=== PATIENT | male | born 1960 | race Caucasian/White ===

== ENCOUNTER → 2019-01-22 | Outpatient (CLI) | payer OTHER, MEDICARE, SELFPAY | PROVIDERS: PCP Family Medicine; Visit Provider Internal Medicine Critical Care Medicine | DX: Z12.2 Encounter for screening for malignant neoplasm of respiratory organs (principal); Z87.891 Personal history of nicotine dependence | CPT/HCPCS: G0297; 36415; 71250; 80053; 80061; 81001; 84153; 84443; 85025 ==

== ENCOUNTER → 2019-04-07 | Outpatient (CLI) | payer OTHER, MEDICARE, SELFPAY | PROVIDERS: PCP Internal Medicine; Visit Provider Surgery Plastic and Reconstructive Surgery | DX: C44.01 Basal cell carcinoma of skin of lip (principal) | CPT/HCPCS: 88305; 88331 ==

== ENCOUNTER 2019-12-28 08:11 | Outpatient (CLI) | payer MEDICARE, SELFPAY ==
[2019-12-28 09:05] LABS: Alanine Aminotransferase 17 U/L (4-50); Alkaline Phosphatase 88 U/L (38-126); Aspartate Amino Transferase 20 U/L (17-59); Bilirubin,Total 0.1 mg/dL (0.2-1.3); Blood Urea Nitrogen 22 mg/dL (9-20); Calcium 8.5 mg/dL (8.4-10.2); Carbon Dioxide 23 mmol/L (22-30); Chloride 103 mmol/L (98-107); Cholesterol 152 mg/dL (0-200); Estimated Glomerular Filt Rate > 60; Glucose 112 mg/dL (75-110); HDL Direct 36 mg/dL; Potassium 4.1 mmol/L (3.4-5.0); Sodium 136 mmol/L (137-145); Triglycerides 100 mg/dL (<150)
[2019-12-28 09:16] LABS: LDL Cholesterol Direct 98 mg/dL
== END 2019-12-28 08:12 | disposition home or self-care (01) ==
LOC: ANHLAB 08:15
PROVIDERS: PCP Internal Medicine; Visit Provider Internal Medicine Endocrinology, Diabetes & Metabolism
DX: E78.5 Hyperlipidemia, unspecified (principal); E11.9 Type 2 diabetes mellitus without complications; E04.1 Nontoxic single thyroid nodule
CPT/HCPCS: 36415; 80053; 80061; 84439; 84443

== ENCOUNTER 2020-01-27 13:41 | Outpatient (CLI) | payer MEDICARE, SELFPAY ==
--- NOTE | ~2020-01-27 | CT_ITS ---
EXAMINATION:CT lung screening DATE: 01/27/2020 14:05 INDICATION: Personal history of nicotine dependence. Smoker who quit 13 years ago with 30 pack year h istory. TECHNIQUE: Computed tomography (CT) of the chest was performed without intravenous contrast. Automate d exposure control and iterative reconstruction technique were employed. The dose-length product (DLP ) was 534.98 mGy-cm. COMPARISON: Chest CT 01/22/2019, thyroid ultrasound 03/26/2015 FINDINGS: Again seen are 8 mm and 3 mm nodules in right lower lobe. A calcified left lung nodule and calcified left hilar lymph nodes are consistent with old granulomatous disease. Again seen are innume rable 1-2 mm nodules in the lower lobes, left worse than right. No pleural effusion. The heart size i s normal. No pericardial effusion. There is bilateral gynecomastia. There is a 1.6 cm nodule in left thyroid lobe, stable from 03/26/2015, likely benign. Calcifications in the spleen are consistent with old granulomatous disease. There is mild thoracic spondylosis. IMPRESSION: 1. Lung-RADS category 2: Benign appearance or behavior. Continue annual screening with noncontrast lo w-dose chest CT in 12 months. Reviewed, dictated and finalized at location A. IMPRESSION: 1. Lung-RADS category 2: Benign appearance or behavior. Continue annual screeni ng with noncontrast low-dose chest CT in 12 months.
== END 2020-01-27 13:42 | disposition home or self-care (01) ==
PROVIDERS: PCP Internal Medicine; Visit Provider Nurse Practitioner Family
DX: Z12.2 Encounter for screening for malignant neoplasm of respiratory organs (principal); Z87.891 Personal history of nicotine dependence
CPT/HCPCS: G0297

== ENCOUNTER 2020-04-08 10:34 | Outpatient (CLI) | payer MEDICARE, SELFPAY ==
[2020-04-08 11:16] LABS: Alanine Aminotransferase 22 U/L (4-50); Alkaline Phosphatase 79 U/L (38-126); Anion Gap 7 mmol/L (8-16); Aspartate Amino Transferase 22 U/L (17-59); Bilirubin,Total 0.4 mg/dL (0.2-1.3); Blood Urea Nitrogen 21 mg/dL (9-20); Calcium 9.2 mg/dL (8.4-10.2); Carbon Dioxide 28 mmol/L (22-30); Chloride 101 mmol/L (98-107); Cholesterol 152 mg/dL (0-200); Estimated Glomerular Filt Rate > 60; Glucose 134 mg/dL (75-110); HDL Direct 32 mg/dL; Potassium 4.2 mmol/L (3.4-5.0); Sodium 136 mmol/L (137-145); Triglycerides 115 mg/dL (<150)
[2020-04-08 11:41] LABS: LDL Cholesterol Direct 109 mg/dL
[2020-04-08 11:59] LABS: Prostate Specific Antigen 0.3 ng/mL (< OR = 4.0)
== END 2020-04-08 10:35 | disposition home or self-care (01) ==
LOC: ANHLAB 10:36
PROVIDERS: PCP Internal Medicine; Visit Provider Internal Medicine
DX: E11.42 Type 2 diabetes mellitus with diabetic polyneuropathy (principal); E88.81 Metabolic syndrome and other insulin resistance; E78.5 Hyperlipidemia, unspecified; Z12.5 Encounter for screening for malignant neoplasm of prostate
CPT/HCPCS: 36415; 80053; 80061; 84153; G0103

== ENCOUNTER 2020-10-15 13:25 | Emergency (ER) | payer MEDICARE, SELFPAY ==
--- NOTE | ~2020-10-15 | XR_ITS ---
EXAMINATION: XR chest 2V EXAM DATE: 10/15/2020 14:19 INDICATION: Fever, dizziness, diminished breath sounds. TECHNIQUE: Frontal and lateral projections of the chest obtained and reviewed. Comparison is made to prior examination from 04/03/2018. Correlation was made with HRCT 01/27/2020. FINDINGS: Chronic left lower lobe granuloma and smaller punctate reticular nodular opacities likely p ostinfectious and not significantly changed compared to 2018. No confluent consolidation, pneumothora x or pleural effusion suspected. Cardiomediastinal silhouette is normal. There are no osseous abnorma lities identified. IMPRESSION: 1. No acute cardiopulmonary findings or interval change. 2. Postinfectious residua. Reviewed, dictated and finalized at location A.
[2020-10-15 13:45] VITALS: BP 140/88; PULSE 102; RESP 26; TEMP 37.9; O2SAT 96
[2020-10-15 13:57] LABS: Glucose Point of Care 139 (65-105)
--- NOTE | 2020-10-15 13:57 | ED.GENADULT ---
HPI - General Adult General Chief complaint: Upper Respiratory Infection Stated complaint: headache,weakness Time Seen by Provider: 10/15/20 13:57 Source: patient Mode of arrival: ambulatory Limitations: no limitations History of Present Illness HPI narrative: 60-year-old male presents to the [facility] with complaints of a fever, generalized fatigue that started at 0 230 this morning. Patient reports that he had seen his diabetes doctor and foot doctor Friday or of last week and was prescribed Bactrim however he did not start taking it until yesterday. Complains of a frontal headache, sinus pressure, fever. COVID-19 05/2020 Related Data Home Medications Medication Instructions Recorded Confirmed aspirin 81 mg tablet,delayed 81 mg PO DAILY 06/24/19 10/15/20 release cinnamon bark 500 mg capsule 500 mg PO DAILY 07/12/19 10/15/20 lancets #50 each 07/12/19 10/12/20 Allergies Allergy/AdvReac Type Severity Reaction Status Date / Time No Known Allergies Allergy Verified 10/15/20 13:59 Review of Systems Review of Systems: Narrative: CONSTITUTIONAL: Reports fever without chills, or sweats. EYES: Denies visual changes, redness, or discharge. ENT: Reports rhinorrhea, congestion without sore throat, or otalgia. CARDIOVASCULAR: Denies chest pain, palpitations, or edema. RESPIRATORY: Reports cough without dyspnea. GASTROINTESTINAL: Denies abdominal pain, nausea, vomiting, or diarrhea. MUSCULOSKELETAL: Denies back pain, joint pain, or myalgia. NEUROLOGIC: Reports frontal headache without numbness, or weakness. PSYCHIATRIC: Denies anxiety or depression. All other systems reviewed are negative, except as documented in HPI. [facility] Past Medical History Medical History (Updated 10/15/20 @ 14:57 by Zoey Murry) Basal cell carcinoma (BCC) of lower lip Essential (primary) hypertension Family history of melanoma Former smoker Morbid obesity Personal history of tobacco use Pure hypercholesterolemia Type 2 diabetes mellitus with diabetic neuropathy, unspecified Unspecified sleep apnea Family History Family History Sibling Family history of kidney disease Family history of diabetes mellitus in first degree relative Family history of coronary artery disease Diabetes mellitus Mother Family history of Alzheimer's disease Family history of malignant melanoma Diabetes mellitus, Onset Age: 84 Family history of cardiovascular disease, Onset Age: 84 Family history of dementia, Onset Age: 84 Father Family history of malignant melanoma Family history of lung cancer, Onset Age: 65 Other Depression Family history of chronic obstructive pulmonary disease Family history of congestive heart failure Family history of malignant neoplasm Family history of obesity Hypertension Social History Social History Smoking status: Former smoker Smoking end date: 07/07/06 Alcohol intake: never 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 There is no relevant family history pertinent to the patient complaint. Exam Narrative: Exam Narrative: GENERAL: This is a well-nourished, well-developed patient, in no apparent distress. Morbidly obese HEAD: normocephalic, atraumatic. EYES: PERRL. Sclera clear/white. Vision is grossly intact. EARS: External ears normal, auditory canals clear and without drainage, TMs normal without perforation. Hearing grossly intact. NOSE: External nose normal with clear nasal discharge, nares with redness and injected, clear rhinorrhea. pressure Pansinus THROAT: Mucous membranes moist, posterior nasal drainage NECK: Neck supple, non-tender without lymphadenopathy, masses or thyromegaly. CARDIOVASCULAR: Regular rate
--- NOTE | 2020-10-15 14:41 | PC.NURSE ---
1425 TYLENOL 1000 MG GIVEN PO FOR FEVER. ALEKSEY SÁNCHEZ RN.
[2020-10-15 15:02] VITALS: BP 124/70; PULSE 101; RESP 26; TEMP 38.1; O2SAT 94
[2020-10-15 15:15] VITALS: BP 130/82; PULSE 88; RESP 24; TEMP 37.8; O2SAT 94
== END 2020-10-15 15:15 | disposition home or self-care (01) ==
PROVIDERS: Emergency Provider Nurse Practitioner; PCP Internal Medicine
DX: J01.40 Acute pansinusitis, unspecified (principal); R53.1 Weakness; Z87.891 Personal history of nicotine dependence; I10 Essential (primary) hypertension; E78.00 Pure hypercholesterolemia, unspecified; E11.42 Type 2 diabetes mellitus with diabetic polyneuropathy; G47.30 Sleep apnea, unspecified; Z85.828 Personal history of other malignant neoplasm of skin; E66.01 Morbid (severe) obesity due to excess calories; Z68.43 Body mass index [BMI] 50.0-59.9, adult
CPT/HCPCS: 71046; 82948; 99213; G0463

== ENCOUNTER 2020-10-19 16:27 | Outpatient (CLI) | payer MEDICARE, SELFPAY ==
--- NOTE | ~2020-10-19 | US_ITS ---
EXAMINATION: US thyroid DATE: 10/19/2020 16:51 INDICATION: Nontoxic single thyroid nodule. TECHNIQUE: Multiple ultrasound images of the thyroid were obtained. COMPARISON: Ultrasound 05/11/2019, 04/03/15 FINDINGS: The right thyroid lobe measures 4.6 x 1.9 x 1.5 cm. The left thyroid lobe measures 4.4 x 2.1 x 2.6 c m. In the left thyroid lobe, there is a 2.5 cm solid, isoechoic, bnnst-dmmw-qzoe nodule with ill-def ined margin without echogenic foci (TI-RADS TR3). IMPRESSION: 1. Left thyroid nodule, stable from 04/03/2015, likely benign. Reviewed, dictated and finalized at location A.
== END 2020-10-19 16:28 | disposition home or self-care (01) ==
PROVIDERS: PCP Internal Medicine; Visit Provider Internal Medicine Endocrinology, Diabetes & Metabolism
DX: E04.1 Nontoxic single thyroid nodule (principal)
CPT/HCPCS: 76536

== ENCOUNTER 2020-10-23 13:08 | Outpatient (CLI) | payer MEDICARE, SELFPAY ==
--- NOTE | ~2020-10-23 | US_ITS ---
EXAMINATION: US FNA w image guidance DATE: 10/23/2020 14:13 INDICATION: 2.4 similar left thyroid nodule TECHNIQUE: A time-out was performed to verify the patient's name, date of , and procedure to be performed . The procedure and its benefits and risks were discussed with the patient. Risks specifically discus sed included bleeding and infection. The patient understood the risks and agreed to proceed. The neck was prepped and draped in the usual sterile manner. 3 mL 1% lidocaine was used for local anesthesia . 6 passes were made with a 25G needle into the lesion. Appropriate needle location was documented with continuous sonographic guidance. The specimens were passed to the optometric technologist in the room. A sterile bandage was applied. There were no immediate complications. FINDINGS: Grayscale ultrasound images demonstrate biopsy needles advanced into the 2.6 similar solid hyperechoi c left thyroid nodule of concern. IMPRESSION: 1. Successful ultrasound-guided fine needle aspiration of . Reviewed, dictated and finalized at location A.
== END 2020-10-23 13:09 | disposition home or self-care (01) ==
PROVIDERS: PCP Internal Medicine; Visit Provider Internal Medicine Endocrinology, Diabetes & Metabolism
DX: E04.1 Nontoxic single thyroid nodule (principal)
CPT/HCPCS: 10005; 88173; 88305; 88307

== ENCOUNTER 2021-01-26 09:52 | Outpatient (CLI) | payer MEDICARE, SELFPAY ==
--- NOTE | ~2021-01-26 | CT_ITS ---
EXAMINATION: CT lung screening DATE: 01/26/2021 10:11 INDICATION: Personal history of tobacco dependence, prior smoker with 78 pack year history TECHNIQUE: Computed tomography (CT) of the chest was performed without intravenous contrast. The dose -length product (DLP) was 558.05 mGy-cm. 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 COMPARISON: 01/27/2020 FINDINGS: There is a stable 8 mm nodule of the right lower lobe on image 78. A stable 3 mm nodule is present in the right lower lobe on image 82. There is a stable 9 mm groundglass nodule of the right l ower lobe on image 90. There are unchanged innumerable nodules of the lower lobes, left greater than right, measuring 1 to 2 mm. A calcified nodule of the left lower lobe is consistent with old granulom atous disease. No new or suspicious pulmonary nodule is identified. The lungs are free of acute opaci ties. There is no pleural effusion or pneumothorax. Bilateral gynecomastia is noted. No pathologicall y enlarged thoracic lymph nodes are identified. The heart size is normal. There is calcified coronary artery atherosclerosis. There is mild thoracic spondylosis. IMPRESSION: 1. Lung-RADS category 2: Benign appearance or behavior. Continue annual screening with noncontrast lo w-dose chest CT in 12 months. Reviewed, dictated and finalized at location B. IMPRESSION: 1. Lung-RADS category 2: Benign appearance or behavior. Continue annual screeni ng with noncontrast low-dose chest CT in 12 months.
== END 2021-01-26 09:53 | disposition home or self-care (01) ==
PROVIDERS: PCP Internal Medicine; Visit Provider Nurse Practitioner Family
DX: Z12.2 Encounter for screening for malignant neoplasm of respiratory organs (principal); Z87.891 Personal history of nicotine dependence
CPT/HCPCS: 71271

== ENCOUNTER 2021-02-10 08:46 | Outpatient (CLI) | payer MEDICARE, SELFPAY ==
[2021-02-10 09:49] LABS: Alanine Aminotransferase 22 U/L (4-50); Albumin Level 3.7 g/dL (3.5-5.1); Alkaline Phosphatase 82 U/L (38-126); Anion Gap 5 mmol/L (8-16); Aspartate Amino Transferase 21 U/L (17-59); Bilirubin,Total 0.4 mg/dL (0.2-1.3); Blood Urea Nitrogen 21 mg/dL (9-20); Calcium 8.5 mg/dL (8.4-10.2); Carbon Dioxide 23 mmol/L (22-30); Chloride 108 mmol/L (98-107); Cholesterol 152 mg/dL (0-200); Estimated Glomerular Filt Rate > 60; Glucose 123 mg/dL (65-110); HDL Direct 33 mg/dL; Potassium 3.6 mmol/L (3.4-5.0); Sodium 136 mmol/L (137-145); Triglycerides 99 mg/dL (<150)
[2021-02-10 10:01] LABS: LDL Cholesterol Direct 95 mg/dL
[2021-02-10 10:59] LABS: Prostate Specific Antigen 0.3 ng/mL (< OR = 4.0)
== END 2021-02-10 08:47 | disposition home or self-care (01) ==
LOC: ANHLAB 08:49
PROVIDERS: PCP Internal Medicine; Visit Provider Nurse Practitioner
DX: Z12.5 Encounter for screening for malignant neoplasm of prostate (principal); E11.42 Type 2 diabetes mellitus with diabetic polyneuropathy; E04.1 Nontoxic single thyroid nodule; E78.2 Mixed hyperlipidemia
CPT/HCPCS: 36415; 80053; 80061; 83036; 84153; 84443; G0103

== ENCOUNTER 2021-02-12 14:26 | Outpatient (CLI) | payer MEDICARE, SELFPAY ==
[2021-02-12 17:35] LABS: Creatinine Urine 122.9 mg/dL
[2021-02-12 17:40] LABS: MALB Creatinine Ratio 6.1 mg/g (0-30); Microalbumin Urine Random 7.5 mg/L (0-16.7)
== END 2021-02-12 14:27 | disposition home or self-care (01) ==
LOC: ANHLAB 14:28
PROVIDERS: PCP Internal Medicine; Visit Provider Nurse Practitioner
DX: E11.42 Type 2 diabetes mellitus with diabetic polyneuropathy (principal)
CPT/HCPCS: 82043

== ENCOUNTER 2021-07-03 10:53 | Outpatient (CLI) | payer MEDICARE, SELFPAY ==
[2021-07-03 11:43] LABS: Alanine Aminotransferase 18 U/L (4-50); Aspartate Amino Transferase 34 U/L (17-59)
== END 2021-07-03 10:54 | disposition home or self-care (01) ==
PROVIDERS: PCP Internal Medicine; Visit Provider Podiatrist Foot & Ankle Surgery
DX: B35.1 Tinea unguium (principal)
CPT/HCPCS: 36415; 84450; 84460

== ENCOUNTER 2021-09-29 10:16 | Outpatient (CLI) | payer MEDICARE, SELFPAY ==
[2021-09-29 11:40] LABS: Alanine Aminotransferase 23 U/L (4-50); Albumin Level 4.2 g/dL (3.5-5.1); Alkaline Phosphatase 69 U/L (38-126); Anion Gap 7 mmol/L (8-16); Aspartate Amino Transferase 34 U/L (17-59); Bilirubin,Total 0.9 mg/dL (0.2-1.3); Blood Urea Nitrogen 23 mg/dL (9-20); Calcium 8.1 mg/dL (8.4-10.2); Carbon Dioxide 29 mmol/L (22-30); Chloride 101 mmol/L (98-107); Cholesterol 157 mg/dL (0-200); Estimated Glomerular Filt Rate > 60; Glucose 126 mg/dL (65-110); HDL Direct 34 mg/dL; Sodium 137 mmol/L (137-145); Triglycerides 79 mg/dL (<150)
[2021-09-29 11:42] LABS: LDL Cholesterol Direct 98 mg/dL
[2021-09-29 13:51] LABS: Hemoglobin A1C 5.9 % (<5.7)
== END 2021-09-29 10:17 | disposition home or self-care (01) ==
PROVIDERS: PCP Internal Medicine; Visit Provider Internal Medicine
DX: E11.42 Type 2 diabetes mellitus with diabetic polyneuropathy (principal); E78.5 Hyperlipidemia, unspecified; I10 Essential (primary) hypertension
CPT/HCPCS: 36415; 80053; 80061; 83036

== ENCOUNTER 2021-11-10 08:41 | Outpatient (CLI) | payer MEDICARE, SELFPAY ==
[2021-11-10 09:25] LABS: Alanine Aminotransferase 17 U/L (4-50); Aspartate Amino Transferase 21 U/L (17-59)
== END 2021-11-10 08:42 | disposition home or self-care (01) ==
PROVIDERS: PCP Internal Medicine; Visit Provider Podiatrist Foot & Ankle Surgery
DX: B35.1 Tinea unguium (principal)
CPT/HCPCS: 36415; 84450; 84460

== ENCOUNTER → 2021-11-24 00:02 | Outpatient (CLI) | payer MEDICARE, SELFPAY ==
[2021-11-24 14:46] LABS: SARS-CoV-2 RNA PCR Positive
== END ==
PROVIDERS: PCP Internal Medicine; Visit Provider Internal Medicine
DX: U07.1 COVID-19 (principal)
CPT/HCPCS: C9803; U0003; U0005

== ENCOUNTER 2022-02-14 08:18 | Outpatient (CLI) | payer MEDICARE, SELFPAY ==
[2022-02-14 09:28] LABS: Albumin Level 4.1 g/dL (3.5-5.1); Anion Gap 10 mmol/L (8-16); Blood Urea Nitrogen 25 mg/dL (9-20); Calcium 8.1 mg/dL (8.4-10.2); Carbon Dioxide 26 mmol/L (22-30); Chloride 103 mmol/L (98-107); Estimated Glomerular Filt Rate > 60; Glucose 129 mg/dL (65-110); Phosphorus 2.8 mg/dL (2.5-4.5); Sodium 139 mmol/L (137-145)
[2022-02-14 09:35] LABS: Alanine Aminotransferase 16 U/L (6-50); Alkaline Phosphatase 91 U/L (38-126); Anion Gap 8 mmol/L (8-16); Aspartate Amino Transferase 25 U/L (17-59); Bilirubin,Total 0.5 mg/dL (0.2-1.3); Blood Urea Nitrogen 27 mg/dL (9-20); Calcium 8.5 mg/dL (8.4-10.2); Carbon Dioxide 27 mmol/L (22-30); Chloride 101 mmol/L (98-107); Cholesterol 214 mg/dL (0-200); Estimated Glomerular Filt Rate > 60; Glucose 127 mg/dL (65-110); HDL Direct 35 mg/dL; Potassium 4.2 mmol/L (3.4-5.0); Sodium 136 mmol/L (137-145); Triglycerides 119 mg/dL (<150)
[2022-02-14 09:40] LABS: Parathyroid Intact 48.1 pg/mL (7.5-53.5)
[2022-02-14 09:42] LABS: LDL Cholesterol Direct 158 mg/dL
[2022-02-14 09:58] LABS: Prostate Specific Antigen 0.3 ng/mL (< OR = 4.0)
== END 2022-02-14 08:19 | disposition home or self-care (01) ==
PROVIDERS: Nurse Practitioner; Nurse Practitioner Family; PCP Internal Medicine; Visit Provider Internal Medicine
DX: R79.89 Other specified abnormal findings of blood chemistry (principal); E11.9 Type 2 diabetes mellitus without complications; Z12.5 Encounter for screening for malignant neoplasm of prostate; E78.5 Hyperlipidemia, unspecified
CPT/HCPCS: 36415; 80053; 80061; 80069; 83036; 83970; 84153; G0103

== ENCOUNTER 2022-10-19 09:43 | Outpatient (CLI) | payer MEDICARE, SELFPAY ==
[2022-10-19 10:18] LABS: Alanine Aminotransferase 22 U/L (6-50); Albumin Level 4.2 g/dL (3.5-5.1); Alkaline Phosphatase 78 U/L (38-126); Anion Gap 7 mmol/L (8-16); Aspartate Amino Transferase 23 U/L (17-59); Blood Urea Nitrogen 20 mg/dL (9-20); Calcium 8.4 mg/dL (8.4-10.2); Carbon Dioxide 29 mmol/L (22-30); Chloride 102 mmol/L (98-107); Cholesterol 145 mg/dL (0-200); Estimated Glomerular Filt Rate > 60; Glucose 112 mg/dL (65-110); HDL Direct 39 mg/dL; Potassium 3.5 mmol/L (3.4-5.0); Sodium 138 mmol/L (137-145); Triglycerides 98 mg/dL (<150)
[2022-10-19 10:29] LABS: LDL Cholesterol Direct 85 mg/dL
[2022-10-19 11:04] LABS: MALB Creatinine Ratio 6.8 mg/g (0-30)
[2022-10-19 12:05] LABS: Hemoglobin A1C 5.9 % (<5.7)
== END 2022-10-19 09:44 | disposition home or self-care (01) ==
PROVIDERS: PCP Internal Medicine; Visit Provider Internal Medicine
DX: E11.65 Type 2 diabetes mellitus with hyperglycemia (principal); I10 Essential (primary) hypertension; E11.42 Type 2 diabetes mellitus with diabetic polyneuropathy; E78.5 Hyperlipidemia, unspecified
CPT/HCPCS: 36415; 80053; 80061; 82043; 83036

== ENCOUNTER 2022-11-07 16:03 | Emergency (ER) | payer MEDICARE, SELFPAY ==
--- NOTE | 2022-11-07 16:18 | ED.URI ---
HPI - URI/Sore Throat General Chief Complaint: Upper Respiratory Infection Stated Complaint: Sore Throat/Cough Source: patient and RN notes reviewed History of Present Illness HPI Narrative: 62-year-old male presents to urgent care complaining of sneezing, a cough, slight sore throat, and runny nose. Patient states symptoms going on since Friday. Patient states his cough might be worsening. Denies any fevers, chills, congestion abdominal pain, vomiting, diarrhea, chest pain, or shortness of breath. Patient has been taking Benadryl at home with moderate relief. Related Data Home Medications Medication Instructions Recorded Confirmed aspirin 81 mg tablet,delayed 81 mg PO DAILY 06/24/19 11/07/22 release cinnamon bark 500 mg capsule 500 mg PO DAILY 07/12/19 11/07/22 (Cinnamon) lancets (Accu-Chek Multiclix #50 ea 07/12/19 10/31/22 Lancet) semaglutide 2 mg/dose (8 mg/3 mL) 2 mg subcut WEEKLY 03/18/22 11/07/22 subcutaneous pen injector (Ozempic) Allergies Allergy/AdvReac Type Severity Reaction Status Date / Time No Known Allergies Allergy Verified 10/31/22 10:17 Review of Systems Review of Systems: Pertinent positives and pertinent negatives per HPI. [facility] Past Medical History Medical History Basal cell carcinoma (BCC) of lower lip Eczema Essential (primary) hypertension Former smoker Long-term insulin use Metabolic syndrome Mixed hyperlipidemia Morbid obesity Neuropathy Obstructive sleep apnea (adult) (pediatric) Pure hypercholesterolemia Thyroid nodule Type 2 diabetes mellitus with diabetic neuropathy, unspecified Viral gastroenteritis Surgical History Surgical History [place] teeth extracted Family History Family History Sibling Family history of kidney disease Family history of diabetes mellitus in first degree relative Family history of coronary artery disease Diabetes mellitus Mother Family history of Alzheimer's disease Family history of malignant melanoma Diabetes mellitus, Onset Age: 84 Family history of cardiovascular disease, Onset Age: 84 Family history of dementia, Onset Age: 84 Father Family history of malignant melanoma Family history of lung cancer, Onset Age: 65 Other Depression Family history of chronic obstructive pulmonary disease Family history of congestive heart failure Family history of malignant neoplasm Family history of obesity Hypertension Social History Social History Smoking packs per day: 2.5 Smoking cigarettes per day: 50.0 Years smoked: 27 Smoking pack-years: 67.50 Smoking status: Former smoker Tobacco type: cigarettes Second hand tobacco smoke exposure: Yes Smoking end date: 07/07/06 Alcohol intake: former Alcohol use details: quit 2006 Substance use: never Substance use type: does not use Lack of Transportation: No Lack of Food: Never True Current Housing: I Have Housing Concerned About Future Housing: No Difficulty Paying Gas/Electric Bills: No Difficulty Paying for Meds: No Currently Unemployed: No Education: High School Diploma/GED Difficulty w/ Childcare or Family Care: No Living arrangements: with family Occupation/Education: occupation 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 There is no relevant family history pertinent to the patient complaint. Exam Narrative: GENERAL: This is a well-nourished, well-developed patient, in no apparent distress. HEAD: normocephalic, atraumatic. EYES: Sclera clear/white. Vision is grossly intact. EARS: Exter
[2022-11-07 16:20] VITALS: BP 122/65; PULSE 70; RESP 20; TEMP 36.8; O2SAT 100
== END 2022-11-07 16:35 | disposition home or self-care (01) ==
PROVIDERS: Emergency Provider Nurse Practitioner Family; PCP Family Medicine
DX: J40 Bronchitis, not specified as acute or chronic (principal); J06.9 Acute upper respiratory infection, unspecified; Z87.891 Personal history of nicotine dependence; I10 Essential (primary) hypertension; E78.2 Mixed hyperlipidemia; E78.00 Pure hypercholesterolemia, unspecified; E11.40 Type 2 diabetes mellitus with diabetic neuropathy, unspecified; E66.01 Morbid (severe) obesity due to excess calories; Z85.828 Personal history of other malignant neoplasm of skin; Z79.82 Long term (current) use of aspirin
CPT/HCPCS: 99213; G0463

== ENCOUNTER 2022-11-17 10:11 | Emergency (ER) | payer MEDICARE, SELFPAY ==
[2022-11-17 10:18] VITALS: BP 144/79; PULSE 78; RESP 20; TEMP 36.4; O2SAT 99
[2022-11-17 10:35] VITALS: BP 144/79; PULSE 78; RESP 20; TEMP 36.4; O2SAT 99
--- NOTE | 2022-11-17 11:31 | ED.GENADULT ---
HPI - General Adult General Chief complaint: Upper Respiratory Infection Stated complaint: throat and drainage Source: patient Mode of arrival: ambulatory Limitations: no limitations History of Present Illness HPI narrative: PATIENT PRESENTS FOR EVALUATION OF SORE THROAT AND SINUS SYMPTOMS. HE WOKE FROM SLEEP THIS MORNING WITH A SORE THROAT. HE STATES HE HAS EXPERIENCED SINUS CONGESTION AND YELLOW DRAINAGE FOR MORE THAN A WEEK. HE INDICATES HE COMPLETED AZITHROMYCIN FOR A SINUS INFECTION ABOUT A WEEK AGO. HE IS A FORMER SMOKER. 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 NO ADDITIONAL COMPLAINTS OR CONCERNS. Related Data Home Medications Medication Instructions Recorded Confirmed aspirin 81 mg tablet,delayed 81 mg PO DAILY 06/24/19 11/17/22 release cinnamon bark 500 mg capsule 500 mg PO DAILY 07/12/19 11/17/22 (Cinnamon) lancets (Accu-Chek Multiclix #50 ea 07/12/19 11/17/22 Lancet) semaglutide 2 mg/dose (8 mg/3 mL) 2 mg subcut WEEKLY 03/18/22 11/17/22 subcutaneous pen injector (Ozempic) Allergies Allergy/AdvReac Type Severity Reaction Status Date / Time No Known Allergies Allergy Verified 11/17/22 10:30 Review of Systems Review of Systems: CONSTITUTIONAL: DENIES FEVER, CHILLS, OR SWEATS. EYES: DENIES VISUAL CHANGES, REDNESS, OR DISCHARGE. ENT: REPORTS SINUS CONGESTION, YELLOW NASAL DRAINAGE AND SORE THROAT CARDIOVASCULAR: DENIES CHEST PAIN, PALPITATIONS, OR EDEMA. RESPIRATORY: REPORTS COUGH. DENIES SOB. GASTROINTESTINAL: DENIES ABDOMINAL PAIN, NAUSEA, VOMITING, OR DIARRHEA. GENITOURINARY: DENIES DYSURIA OR HEMATURIA. SKIN: DENIES RASH OR ITCHING. MUSCULOSKELETAL: DENIES BACK PAIN, JOINT PAIN, OR MYALGIA. NEUROLOGIC: DENIES HEADACHE, NUMBNESS, DIZZINESS, OR WEAKNESS. PSYCHIATRIC: DENIES ANXIETY OR DEPRESSION. [facility] Past Medical History Medical History Basal cell carcinoma (BCC) of lower lip Eczema Essential (primary) hypertension Former smoker Long-term insulin use Metabolic syndrome Mixed hyperlipidemia Morbid obesity Neuropathy Obstructive sleep apnea (adult) (pediatric) Pure hypercholesterolemia Thyroid nodule Type 2 diabetes mellitus with diabetic neuropathy, unspecified Viral gastroenteritis Surgical History Surgical History [place] teeth extracted Family History Family History Sibling Family history of kidney disease Family history of diabetes mellitus in first degree relative Family history of coronary artery disease Diabetes mellitus Mother Family history of Alzheimer's disease Family history of malignant melanoma Diabetes mellitus, Onset Age: 84 Family history of cardiovascular disease, Onset Age: 84 Family history of dementia, Onset Age: 84 Father Family history of malignant melanoma Family history of lung cancer, Onset Age: 65 Other Depression Family history of chronic obstructive pulmonary disease Family history of congestive heart failure Family history of malignant neoplasm Family history of obesity Hypertension Social History Social History Smoking packs per day: 2.5 Smoking cigarettes per day: 50.0 Years smoked: 27 Smoking pack-years: 67.50 Smoking status: Former smoker Tobacco type: cigarettes Second hand tobacco smoke exposure: Yes Smoking end date: 07/07/06 Alcohol intake: former Alcohol use details: quit 2006 Substance use: never Substance use type: does not use Lack of Transportation: No Lack of Food: Never True Current Housing: I Have Housing Concerned About Future Housing: No Difficulty Paying Gas/Electric Bills: No Difficulty Paying for Meds: No Currentl
== END 2022-11-17 11:30 | disposition home or self-care (01) ==
PROVIDERS: Emergency Provider Nurse Practitioner; PCP Family Medicine
DX: J01.10 Acute frontal sinusitis, unspecified (principal); J02.9 Acute pharyngitis, unspecified; Z87.891 Personal history of nicotine dependence; I10 Essential (primary) hypertension; E88.81 Metabolic syndrome and other insulin resistance; E78.2 Mixed hyperlipidemia; E66.01 Morbid (severe) obesity due to excess calories; Z68.43 Body mass index [BMI] 50.0-59.9, adult; E78.00 Pure hypercholesterolemia, unspecified; E11.42 Type 2 diabetes mellitus with diabetic polyneuropathy; Z85.828 Personal history of other malignant neoplasm of skin; Z79.82 Long term (current) use of aspirin
CPT/HCPCS: 87081; 87880; 99213; G0463

== ENCOUNTER 2023-01-04 07:47 | Outpatient (CLI) | payer MEDICARE, SELFPAY ==
[2023-01-04 08:51] LABS: Alanine Aminotransferase 21 U/L (6-50); Aspartate Amino Transferase 29 U/L (17-59)
== END 2023-01-04 07:48 | disposition home or self-care (01) ==
LOC: ANHLAB 07:49
PROVIDERS: PCP Family Medicine; Visit Provider Podiatrist Foot & Ankle Surgery
DX: B35.1 Tinea unguium (principal)
CPT/HCPCS: 36415; 84450; 84460

== ENCOUNTER 2023-01-10 09:23 | Outpatient (CLI) | payer MEDICARE, SELFPAY ==
--- NOTE | ~2023-01-10 | CT_ITS ---
CT Scan of the Chest without Contrast: Clinical Indication: Pulmonary nodule Technique: Contiguous sections were acquired throughout the chest without intravenous contrast. Dose reduction technique was used on this scan by utilizing automated exposure control and iterative recon struction technique. The dose-length product (DLP) was 630.13 mGy-cm. COMPARISON: 01/26/2021 Findings: There is no evidence of any significant mediastinal, hilar or axillary lymphadenopathy. The mediastin al soft tissues appear normal. There is no evidence of pleural or pericardial effusion. Extensive tree-in-bud nodules in the left lower lobe are unchanged. Large calcified left lower lobe g ranulomas unchanged. Stable 8 mm right lower lobe pulmonary nodule (axial image 99). Minimal tree-in- bud-like opacities in the right lower lobe are unchanged. Images through the upper abdomen reveal no abnormalities. Impression: Stable bilateral lower lobe tree-in-bud opacities, much more extensive in the left lower lobe than th e right. Stable 8 mm noncalcified right lower lobe pulmonary nodule. Reviewed, dictated and finalized at location M. Impression: Stable bilateral lower lobe tree-in-bud opacities, much more extensive in the l eft lower lobe than the right. Stable 8 mm noncalcified right lower lobe pulmonary nodule.
== END 2023-01-10 09:24 | disposition home or self-care (01) ==
PROVIDERS: PCP Family Medicine; Visit Provider Nurse Practitioner Family
DX: R91.8 Other nonspecific abnormal finding of lung field (principal)
CPT/HCPCS: 71250

== ENCOUNTER 2023-05-31 12:04 | Emergency (ER) | payer MEDICARE, SELFPAY ==
[2023-05-31 12:09] VITALS: BP 139/77; PULSE 72; RESP 20; TEMP 36.7; O2SAT 97
--- NOTE | 2023-05-31 12:28 | ED.EXTPRO ---
HPI - Extremity Problem General Chief complaint: Extremity Problem,Nontraumatic Stated complaint: Right Shoulder Pain Source: patient, family and RN notes reviewed History of Present Illness HPI Narrative: 62 yo M presents to urgent care with complaints of right posterior shoulder pain that radiates down to his elbow x 8 days. Pt denies any injury. States the pain worsens when he looks up to the jeronimo. Pt has some pain relief when he put his right hand on the top of his head. Denies any chest pain, SOB, vomiting, posterior neck pain, fevers, chills, numbness, or tingling. Pt has taken Tylenol and applied heat without relief. Related Data Home Medications Medication Instructions Recorded Confirmed aspirin 81 mg tablet,delayed 81 mg PO DAILY 06/24/19 05/31/23 release cinnamon bark 500 mg capsule 500 mg PO DAILY 07/12/19 05/31/23 (Cinnamon) lancets (Accu-Chek Multiclix #50 ea 07/12/19 05/08/23 Lancet) terbinafine HCl 250 mg tablet 250 mg PO DAILY 01/20/23 05/31/23 gabapentin 100 mg capsule 200 mg PO BID 05/08/23 05/31/23 Allergies Allergy/AdvReac Type Severity Reaction Status Date / Time No Known Allergies Allergy Verified 05/31/23 12:19 Review of Systems Review of Systems: CONSTITUTIONAL: Denies fever, chills, or sweats. EYES: Denies visual changes, redness, or discharge. ENT: Denies otalgia and sore throat CARDIOVASCULAR: Denies chest pain, palpitations, or edema. RESPIRATORY: Denies cough or dyspnea. GASTROINTESTINAL: Denies abdominal pain, nausea, vomiting, or diarrhea. GENITOURINARY: Denies dysuria or hematuria. SKIN: Denies rash or itching. NEUROLOGIC: Denies headache, numbness, or weakness. Pertinent positives per HPI. [facility] Past Medical History Medical History Basal cell carcinoma (BCC) of lower lip Eczema Essential (primary) hypertension Former smoker Long-term insulin use Metabolic syndrome Mixed hyperlipidemia Morbid obesity Neuropathy Obstructive sleep apnea (adult) (pediatric) Pure hypercholesterolemia Thyroid nodule Type 2 diabetes mellitus with diabetic neuropathy, unspecified Viral gastroenteritis Surgical History Surgical History [place] teeth extracted Family History Family History Sibling Family history of kidney disease Family history of diabetes mellitus in first degree relative Family history of coronary artery disease Diabetes mellitus Mother Family history of Alzheimer's disease Family history of malignant melanoma Diabetes mellitus, Onset Age: 84 Family history of cardiovascular disease, Onset Age: 84 Family history of dementia, Onset Age: 84 Father Family history of malignant melanoma Family history of lung cancer, Onset Age: 65 Other Depression Family history of chronic obstructive pulmonary disease Family history of congestive heart failure Family history of malignant neoplasm Family history of obesity Hypertension Social History Social History Smoking packs per day: 2.5 Smoking cigarettes per day: 50.0 Years smoked: 27 Smoking pack-years: 67.50 Smoking status: Former smoker Tobacco type: cigarettes Second hand tobacco smoke exposure: Yes Smoking end date: 07/07/06 Alcohol intake: former Alcohol use details: quit 2006 Substance use: never Substance use type: does not use Lack of Transportation: No Lack of Food: Never True Current Housing: I Have Housing Concerned About Future Housing: No Difficulty Paying Gas/Electric Bills: No Difficulty Paying for Meds: No Currently Unemployed: No Education: High School Diploma/GED Difficulty w/ Childcare or Family Care: No Living arrangements: with family Occupation/Education: occupation Additional o
[2023-05-31] MEDS: predniSONE 20 MG TABLET 60 MG PO (12:38)
== END 2023-05-31 12:35 | disposition home or self-care (01) ==
PROVIDERS: Emergency Provider Nurse Practitioner Family; PCP Family Medicine
DX: M54.12 Radiculopathy, cervical region (principal); I10 Essential (primary) hypertension; E78.2 Mixed hyperlipidemia; E11.9 Type 2 diabetes mellitus without complications; Z79.899 Other long term (current) drug therapy; Z79.82 Long term (current) use of aspirin; Z87.891 Personal history of nicotine dependence
CPT/HCPCS: 99213; G0463; J7512

== ENCOUNTER 2023-06-28 08:12 | Outpatient (CLI) | payer MEDICARE, SELFPAY ==
[2023-06-28 08:29] LABS: Basophils Percent Auto 0.7 % (0.2-1.2); Eosinophils Absolute Auto 0.2 K/mm3 (0-0.3); Eosinophils Percent Auto 3.5 % (0-4.4); Hematocrit 45.3 % (42.0-52.0); Hemoglobin 14.7 g/dL (14.0-18.0); Immature Granulocyte Absolute 0.01 K/mm3 (0.00-0.031); Immature Granulocyte Percent A 0.2 % (0-0.5); Lymphocytes Absolute Auto 1.77 K/mm3 (0.9-3.2); Lymphocytes Percent Auto 30.8 % (18.3-44.2); Mean Corpuscular HGB Conc 32.5 g/dl (32-36); Mean Corpuscular Hemoglobin 30.9 pg (26-34); Mean Corpuscular Volume 95.2 fl (80-100); Mean Platelet Volume 9.4 fl (7.4-10.4); Monocytes Absolute Auto 0.7 K/mm3 (0.1-0.6); Monocytes Percent Auto 11.3 % (2.6-8.5); Neutrophils Absolute Auto 3.1 K/mm3 (1.3-6.7); Neutrophils Percent Auto 53.5 % (45.5-73.1); Platelet Count Result 199 k/mm3 (150-375); Red Blood Count 4.76 M/mm3 (4.6-6.20); Red Cell Distribution Width 14.7 % (11.5-14.5); White Blood Count 5.7 K/mm3 (4.5-10.0)
[2023-06-28 08:47] LABS: Alanine Aminotransferase 24 U/L (6-50); Albumin Level 4.1 g/dL (3.5-5.1); Alkaline Phosphatase 86 U/L (38-126); Anion Gap 8 mmol/L (8-16); Aspartate Amino Transferase 23 U/L (17-59); Bilirubin,Total 0.5 mg/dL (0.2-1.3); Blood Urea Nitrogen 24 mg/dL (9-20); Calcium 8.7 mg/dL (8.4-10.2); Carbon Dioxide 26 mmol/L (22-30); Chloride 106 mmol/L (98-107); Estimated Glomerular Filt Rate > 60; Glucose 125 mg/dL (65-110); Potassium 3.7 mmol/L (3.4-5.0); Sodium 140 mmol/L (137-145)
[2023-06-28 09:13] LABS: Prostate Specific Antigen 0.4 ng/mL (< OR = 4.0)
[2023-06-28 09:18] LABS: Free T4 Free Thyroxine 1.05 ng/mL (0.78-2.19)
[2023-06-28 10:01] LABS: Hemoglobin A1C 6.2 % (<5.7)
== END 2023-06-28 08:13 | disposition home or self-care (01) ==
PROVIDERS: Nurse Practitioner Family; PCP Family Medicine; Referring Provider Internal Medicine Endocrinology, Diabetes & Metabolism; Visit Provider Family Medicine
DX: E04.1 Nontoxic single thyroid nodule (principal); E11.65 Type 2 diabetes mellitus with hyperglycemia; Z12.5 Encounter for screening for malignant neoplasm of prostate; Z13.228 Encounter for screening for other metabolic disorders; I10 Essential (primary) hypertension; E78.2 Mixed hyperlipidemia; E11.42 Type 2 diabetes mellitus with diabetic polyneuropathy; Z13.0 Encounter for screening for diseases of the blood and blood-forming organs and certain disorders involving the immune mechanism
CPT/HCPCS: 36415; 80053; 83036; 84153; 84439; 84443; 85025; G0103

== ENCOUNTER 2023-07-04 14:57 | Outpatient (CLI) | payer MEDICARE, SELFPAY ==
--- NOTE | ~2023-07-04 | XR_ITS ---
EXAMINATION: XR lumbar spine 2-3V DATE: 07/04/2023 15:45 INDICATION: Low back pain TECHNIQUE: Anteroposterior and lateral views of the lumbar spine, and cone-down lateral view of the l umbosacral junction were obtained. COMPARISON: None. FINDINGS: Bone alignment is normal. There is no fracture. There is moderate loss of intervertebral di sc space height at L4-5 and mild loss of intervertebral disc space height at L1-2 and L5-S1. The vert ebral body heights are maintained. Small degenerative osteophytes project from the anterior endplates of multiple vertebral bodies. There is moderate facet joint osteoarthritis at L5-S1. Calcified ather osclerosis is noted. IMPRESSION: 1. Moderate lumbar spondylosis L4-5 with mild lumbar spondylosis elsewhere. Reviewed, dictated and finalized at location B. AGING SUPERVISOR
--- NOTE | ~2023-07-04 | XR_ITS ---
[id number] 07/04/2023 15:45 Indication: Cervicalgia Procedure: 4 view cervical spine Comparison: No prior studies for comparison. Findings: There is mild-moderate multilevel uncinate and facet hypertrophy. Odontoid process is duran l. Vertebral body heights are maintained. There is disc narrowing at C5-6. No prevertebral soft tissu e abnormality. Lung apices are normal. There are carotid calcifications. Impression: 1: Moderate cervical spondylosis. Reviewed, dictated and finalized at location A. N RESOURCES ASSISTANT Impression: 1: Moderate cervical spondylosis.
== END 2023-07-04 14:58 ==
PROVIDERS: PCP Nurse Practitioner Family; Visit Provider Nurse Practitioner Family
DX: M54.41 Lumbago with sciatica, right side (principal); M54.2 Cervicalgia; M43.06 Spondylolysis, lumbar region; M43.02 Spondylolysis, cervical region
CPT/HCPCS: 72040; 72100

== ENCOUNTER 2023-07-22 16:36 | Emergency (ER) | payer MEDICARE, SELFPAY ==
--- NOTE | 2023-07-22 16:40 | ED.URI ---
HPI - URI/Sore Throat General Chief Complaint: Upper Respiratory Infection Stated Complaint: Left Eye Problem/Cough Time Seen by Provider: 07/22/23 16:50 Source: patient and RN notes reviewed Mode of arrival: ambulatory Limitations: no limitations History of Present Illness HPI Narrative: 62-year-old male presents with concern for nasal congestion, drainage, eye drainage that started on Friday. He reports DayQuil has not made much difference. He denies fever, body aches, chills, sweats. Reports occasional cough. MD elicited complaint: nasal congestion Related Data Home Medications Medication Instructions Recorded Confirmed aspirin 81 mg tablet,delayed 81 mg PO DAILY 06/24/19 07/04/23 release cinnamon bark 500 mg capsule 500 mg PO DAILY 07/12/19 07/04/23 (Cinnamon) terbinafine HCl 250 mg tablet 250 mg PO DAILY 01/20/23 07/04/23 Allergies Allergy/AdvReac Type Severity Reaction Status Date / Time No Known Allergies Allergy Verified 07/04/23 14:06 Review of Systems Review of Systems: CONSTITUTIONAL: Denies malaise, chills, sweats, or fever. EYES: Denies visual changes, redness. Reports left eye discharge. ENT: Reports rhinorrhea, congestion. Denies sinus pain, otalgia and sore throat. CARDIOVASCULAR: Denies chest pain, palpitations, or edema. RESPIRATORY: Occasional cough. Denies dyspnea. GASTROINTESTINAL: Denies abdominal pain, nausea, vomiting, diarrhea SKIN: Denies rash or itching. MUSCULOSKELETAL: Denies myalgia. NEUROLOGIC: Denies headache. All systems reviewed & are unremarkable except as noted in HPI and below PMFSH Past Medical History Medical History Basal cell carcinoma (BCC) of lower lip Eczema Essential (primary) hypertension Former smoker Long-term insulin use Metabolic syndrome Mixed hyperlipidemia Morbid obesity Neuropathy Obstructive sleep apnea (adult) (pediatric) Pure hypercholesterolemia Thyroid nodule Type 2 diabetes mellitus with diabetic neuropathy, unspecified Viral gastroenteritis Surgical History Surgical History [place] teeth extracted Family History Family History Sibling Family history of kidney disease Family history of diabetes mellitus in first degree relative Family history of coronary artery disease Diabetes mellitus Mother Family history of Alzheimer's disease Family history of malignant melanoma Diabetes mellitus, Onset Age: 84 Family history of cardiovascular disease, Onset Age: 84 Family history of dementia, Onset Age: 84 Father Family history of malignant melanoma Family history of lung cancer, Onset Age: 65 Other Depression Family history of chronic obstructive pulmonary disease Family history of congestive heart failure Family history of malignant neoplasm Family history of obesity Hypertension Social History Social History Smoking packs per day: 2.5 Smoking cigarettes per day: 50.0 Years smoked: 27 Smoking pack-years: 67.50 Smoking status: Former smoker Tobacco type: cigarettes Second hand tobacco smoke exposure: Yes Smoking end date: 07/07/06 Alcohol intake: former Alcohol use details: quit 2006 Substance use: never Substance use type: does not use Lack of Transportation: No Lack of Food: Never True Current Housing: I Have Housing Concerned About Future Housing: No Difficulty Paying Gas/Electric Bills: No Difficulty Paying for Meds: No Currently Unemployed: No Education: High School Diploma/GED Difficulty w/ Childcare or Family Care: No Living arrangements: with family Occupation/Education: occupation 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
[2023-07-22 16:46] VITALS: BP 132/58; PULSE 72; RESP 16; TEMP 36.9; O2SAT 96
== END 2023-07-22 17:02 | disposition home or self-care (01) ==
PROVIDERS: Emergency Provider Nurse Practitioner; PCP Family Medicine
DX: J06.9 Acute upper respiratory infection, unspecified (principal); Z87.891 Personal history of nicotine dependence; I10 Essential (primary) hypertension; E78.2 Mixed hyperlipidemia; E66.01 Morbid (severe) obesity due to excess calories; Z68.43 Body mass index [BMI] 50.0-59.9, adult; E78.00 Pure hypercholesterolemia, unspecified; E11.42 Type 2 diabetes mellitus with diabetic polyneuropathy; Z79.4 Long term (current) use of insulin; Z85.828 Personal history of other malignant neoplasm of skin; Z79.82 Long term (current) use of aspirin
CPT/HCPCS: 99213; G0463

== ENCOUNTER 2023-07-26 08:08 | Outpatient (CLI) | payer MEDICARE, SELFPAY ==
[2023-07-30 12:56] LABS: Testosterone Free 40.7 pg/mL (35.0-155.0); Testosterone Total 253 ng/dL (250-1100)
== END 2023-07-26 08:09 | disposition home or self-care (01) ==
LOC: ANHLAB 08:11
PROVIDERS: PCP Family Medicine; Visit Provider Family Medicine
DX: E11.65 Type 2 diabetes mellitus with hyperglycemia (principal); E66.01 Morbid (severe) obesity due to excess calories; E66.9 Obesity, unspecified; E78.2 Mixed hyperlipidemia; E78.5 Hyperlipidemia, unspecified; G47.33 Obstructive sleep apnea (adult) (pediatric); G62.9 Polyneuropathy, unspecified; I10 Essential (primary) hypertension; K59.00 Constipation, unspecified; N52.9 Male erectile dysfunction, unspecified; R79.89 Other specified abnormal findings of blood chemistry
CPT/HCPCS: 36415; 84402; 84403

== ENCOUNTER 2023-10-31 11:35 | Emergency (ER) | payer OTHER, SELFPAY ==
--- NOTE | 2023-10-31 11:39 | ED.SKABFB ---
HPI - Skin/Abscess/Foreign Bdy General Chief complaint: Skin/Abscess/Foreign Body Stated complaint: knot on chest growing Time Seen by Provider: 10/31/23 11:48 Source: patient, RN notes reviewed and old records reviewed Mode of arrival: ambulatory Limitations: no limitations History of Present Illness HPI narrative: 63-year-old male presents to the [facility] with a knot on the lower breast, upper abdomen area right side. Patient states the ?knot? has been there for several months. Has talking to his primary care provider and she was supposed to refer him to Dermatology. Dermatology referral seen in chart. Patient states over the last 2 days it has become red, painful and yesterday noted some drainage to his T-shirt. States cleaned it with peroxide yesterday Related Data Home Medications Medication Instructions Recorded Confirmed aspirin 81 mg tablet,delayed 81 mg PO DAILY 06/24/19 10/31/23 release cinnamon bark 500 mg capsule 500 mg PO DAILY 07/12/19 10/31/23 (Cinnamon) terbinafine HCl 250 mg tablet 250 mg PO DAILY 01/20/23 10/31/23 Allergies Allergy/AdvReac Type Severity Reaction Status Date / Time No Known Allergies Allergy Verified 10/31/23 12:03 Review of Systems Review of Systems: All systems reviewed & are unremarkable except as noted in HPI and below Constitutional: Constitutional: Reports no additional constitutional complaints Eyes: Eyes: Reports no additional eye complaints ENT: Reports system reviewed and no additional complaints, except as documented Cardiovascular: Cardiovascular: Reports no additional cardiovascular complaints, Denies chest pain and Denies dyspnea Respiratory: Respiratory: Reports no additional respiratory complaints, Denies chest congestion, Denies cough and Denies dyspnea Gastrointestinal: Gastrointestinal: Reports no additional gastrointestinal complaints, Denies abdominal pain, Denies nausea and Denies vomiting Musculoskeletal: Musculoskeletal: Reports no additional musculoskeletal complaints Integumentary/Breasts: Skin/Breast: Reports as per HPI Neurologic: Reports system reviewed and no additional complaints, except as documented Psychiatric: Psychiatric: Reports no additional psychiatric complaints Allergic/Immunologic: Allergic/Immunologic: Reports no additional allergic/immunologic complaints PMF Past Medical History Medical History Basal cell carcinoma (BCC) of lower lip Eczema Essential (primary) hypertension Former smoker Goiter Long-term insulin use Metabolic syndrome Metabolic syndrome Morbid obesity Neuropathy Obstructive sleep apnea (adult) (pediatric) Pure hypercholesterolemia Thyroid nodule Type 2 diabetes mellitus with diabetic neuropathy, unspecified Viral gastroenteritis Surgical History Surgical History [place] teeth extracted Family History Family History Sibling Family history of kidney disease Family history of diabetes mellitus in first degree relative Family history of coronary artery disease Diabetes mellitus Mother Family history of Alzheimer's disease Family history of malignant melanoma Diabetes mellitus, Onset Age: 84 Family history of cardiovascular disease, Onset Age: 84 Family history of dementia, Onset Age: 84 Father Family history of malignant melanoma Family history of lung cancer, Onset Age: 65 Other Depression Family history of chronic obstructive pulmonary disease Family history of congestive heart failure Family history of malignant neoplasm Family history of obesity Hypertension Social History Social History Smoking packs per day: 2.5 Smoking cigarettes per day: 50.0 Years smoked: 27 Smoking pack-years: 67.50 Smoking s
[2023-10-31 11:42] VITALS: BP 120/64; PULSE 69; RESP 14; TEMP 36.6; O2SAT 97
== END 2023-10-31 12:46 | disposition home or self-care (01) ==
PROVIDERS: Emergency Provider Nurse Practitioner; PCP Family Medicine
DX: L02.213 Cutaneous abscess of chest wall (principal); B96.89 Other specified bacterial agents as the cause of diseases classified elsewhere; Z87.891 Personal history of nicotine dependence; I10 Essential (primary) hypertension; E88.810 Metabolic syndrome; E66.01 Morbid (severe) obesity due to excess calories; Z68.43 Body mass index [BMI] 50.0-59.9, adult; E11.40 Type 2 diabetes mellitus with diabetic neuropathy, unspecified; E78.00 Pure hypercholesterolemia, unspecified; Z85.828 Personal history of other malignant neoplasm of skin; Z79.82 Long term (current) use of aspirin
CPT/HCPCS: 87070; 87075; 87076; 87205; 99213; G0463

== ENCOUNTER 2023-11-15 15:07 | Emergency (ER) | payer OTHER, SELFPAY ==
--- NOTE | 2023-11-15 15:13 | ED.GENADULT ---
HPI - General Adult General Chief complaint: Unspecified Stated complaint: neck,shoulder,back pain Time Seen by Provider: 11/15/23 15:13 Source: patient, RN notes reviewed and old records reviewed Mode of arrival: ambulatory Limitations: no limitations History of Present Illness HPI narrative: 63-year-old male to [facility] for complaint acute on chronic neck pain radiating down right arm. Patient reports history of multiple bulging discs, arthritis throughout spine. Patient states that this has been going on for 9 months in that he has a consultation with orthopedic surgeon January 11. Patient reports that they are remodeling their home and that he over worked himself 3 days ago and reports pain 04/15. Patient denies headache, dizziness, numbness in upper extremities. Patient in no acute distress. Related Data Home Medications Medication Instructions Recorded Confirmed aspirin 81 mg tablet,delayed 81 mg PO DAILY 06/24/19 11/04/23 release cinnamon bark 500 mg capsule 500 mg PO DAILY 07/12/19 11/04/23 (Cinnamon) terbinafine HCl 250 mg tablet 250 mg PO DAILY 01/20/23 11/04/23 Allergies Allergy/AdvReac Type Severity Reaction Status Date / Time No Known Allergies Allergy Verified 11/15/23 15:13 Review of Systems Review of Systems: All systems reviewed & are unremarkable except as noted in HPI and below Constitutional: Constitutional: Reports no additional constitutional complaints Eyes: Eyes: Reports no additional eye complaints ENT: Reports system reviewed and no additional complaints, except as documented Cardiovascular: Cardiovascular: Reports no additional cardiovascular complaints, Denies chest pain and Denies dyspnea Respiratory: Respiratory: Reports no additional respiratory complaints, Denies cough and Denies dyspnea Musculoskeletal: Musculoskeletal: Reports as per HPI, Reports back pain, Reports neck pain, Reports radiating pain into limb and Reports tingling Neurologic: Reports system reviewed and no additional complaints, except as documented Psychiatric: Psychiatric: Reports no additional psychiatric complaints PMFSH Past Medical History Medical History Basal cell carcinoma (BCC) of lower lip Eczema Essential (primary) hypertension Former smoker Goiter Long-term insulin use Metabolic syndrome Metabolic syndrome Morbid obesity Neuropathy Obstructive sleep apnea (adult) (pediatric) Pure hypercholesterolemia Thyroid nodule Type 2 diabetes mellitus with diabetic neuropathy, unspecified Viral gastroenteritis Surgical History Surgical History [place] teeth extracted Family History Family History Sibling Family history of kidney disease Family history of diabetes mellitus in first degree relative Family history of coronary artery disease Diabetes mellitus Mother Family history of Alzheimer's disease Family history of malignant melanoma Diabetes mellitus, Onset Age: 84 Family history of cardiovascular disease, Onset Age: 84 Family history of dementia, Onset Age: 84 Father Family history of malignant melanoma Family history of lung cancer, Onset Age: 65 Other Depression Family history of chronic obstructive pulmonary disease Family history of congestive heart failure Family history of malignant neoplasm Family history of obesity Hypertension Social History Social History Smoking packs per day: 2.5 Smoking cigarettes per day: 50.0 Years smoked: 27 Smoking pack-years: 67.50 Smoking status: Former smoker Tobacco type: cigarettes Second hand tobacco smoke exposure: Yes Smoking end date: 07/07/06 Alcohol intake: former Alcohol use details: quit 2006 Substance use: never
[2023-11-15 15:16] VITALS: BP 151/76; PULSE 57; RESP 16; TEMP 36.8; O2SAT 99
== END 2023-11-15 15:37 | disposition home or self-care (01) ==
PROVIDERS: Emergency Provider Nurse Practitioner Family; PCP Nurse Practitioner Family
DX: M54.12 Radiculopathy, cervical region (principal); Z79.82 Long term (current) use of aspirin; I10 Essential (primary) hypertension; E11.9 Type 2 diabetes mellitus without complications; Z79.4 Long term (current) use of insulin; E66.01 Morbid (severe) obesity due to excess calories; Z68.43 Body mass index [BMI] 50.0-59.9, adult; E78.00 Pure hypercholesterolemia, unspecified; G47.33 Obstructive sleep apnea (adult) (pediatric); Z87.891 Personal history of nicotine dependence
CPT/HCPCS: 99213; G0463

== ENCOUNTER 2023-12-08 10:01 | Outpatient (CLI) | payer OTHER, SELFPAY ==
--- NOTE | ~2023-12-08 | US_ITS ---
Thyroid ultrasound. Clinical History: Nontoxic thyroid nodule Findings: Real-time sonography of the thyroid gland was performed. The right lobe measures 4.5 x 1.7 x 1.6 cm. The left lobe measures 5.7 x 2.2 x 1.9 cm. The isthmus is 3 mm in AP diameter. There is a probable 2.6 x 1.8 cm heterogeneous, isoechoic nodule at the left mid to upper pole, simil ar to prior exam. Impression: Probable 2.6 cm left thyroid lobe nodule, similar to prior exam. Reviewed, dictated and finalized at location . Impression: Probable 2.6 cm left thyroid lobe nodule, similar to prior exam.
== END 2023-12-08 10:02 ==
LOC: MICIMG 10:02
PROVIDERS: PCP Nurse Practitioner Family; Visit Provider Internal Medicine Endocrinology, Diabetes & Metabolism
DX: E04.1 Nontoxic single thyroid nodule (principal)
CPT/HCPCS: 76536

== ENCOUNTER 2024-01-31 08:19 | Outpatient (CLI) | payer OTHER, SELFPAY ==
[2024-01-31 09:10] LABS: Alanine Aminotransferase 27 U/L (6-50); Alkaline Phosphatase 62 U/L (38-126); Anion Gap 6 mmol/L (4-12); Aspartate Amino Transferase 22 U/L (17-59); Blood Urea Nitrogen 29 mg/dL (9-20); Calcium 8.6 mg/dL (8.4-10.2); Carbon Dioxide 30 mmol/L (22-30); Chloride 104 mmol/L (98-107); Cholesterol 153 mg/dL (0-200); Estimated Glomerular Filt Rate > 60; Glucose 109 mg/dL (65-110); HDL Direct 45 mg/dL; Potassium 3.6 mmol/L (3.4-5.0); Sodium 140 mmol/L (137-145); Triglycerides 139 mg/dL (<150)
[2024-01-31 09:12] LABS: Hematocrit 42.4 % (42.0-52.0); Hemoglobin 14.2 g/dL (14.0-18.0); Mean Corpuscular HGB Conc 33.5 g/dl (32-36); Mean Corpuscular Hemoglobin 32.6 pg (26-34); Mean Corpuscular Volume 97.2 fl (80-100); Mean Platelet Volume 10.2 fl (7.4-10.4); Platelet Count Result 180 k/mm3 (150-375); Red Blood Count 4.36 M/mm3 (4.6-6.20); Red Cell Distribution Width 15.3 % (11.5-14.5); White Blood Count 9.9 K/mm3 (4.5-10.0)
[2024-01-31 09:21] LABS: LDL Cholesterol Direct 89 mg/dL
== END 2024-01-31 08:20 | disposition home or self-care (01) ==
PROVIDERS: PCP Nurse Practitioner Family; Visit Provider Nurse Practitioner Family
DX: M54.2 Cervicalgia (principal); E04.1 Nontoxic single thyroid nodule; E11.42 Type 2 diabetes mellitus with diabetic polyneuropathy; E66.01 Morbid (severe) obesity due to excess calories; E78.5 Hyperlipidemia, unspecified; G47.33 Obstructive sleep apnea (adult) (pediatric); G62.9 Polyneuropathy, unspecified; I10 Essential (primary) hypertension
CPT/HCPCS: 36415; 80053; 80061; 85027

== ENCOUNTER 2024-02-10 01:10 | Day surgery (SDC) | payer OTHER, SELFPAY ==
[2024-01-20 10:07] VITALS: BMI 55.7
--- NOTE | 2024-02-09 14:40 | SUR.PREOP ---
Patient called regarding prep for procedure tomorrow 02/09. Patient states that he didn't read his instructions all the way and has been eating on his prep day until 1:30. Patient states that he last had a sandwich and some cookies. Spoke with Michelle Zelaya, GI Community Resource Officer for further instructions for patient. Instructed patient to not eat anything else for the day, and to take prep as instructed on paperwork. Educated patient on each step of the prep and the patient has no questions at this time. Patient states he will call endoscopy lab tomorrow AM at 6:15 to let us know how his prep went and whether he is cleaned out or not. Educated patient that if his bowels are not cleaned out, MD may delay procedure or even reschedule procedure to a different day. Patient is agreeable to this.
[2024-02-10 08:46] VITALS: BP 131/71; PULSE 67; RESP 18; TEMP 36.4; O2SAT 98
[2024-02-10 08:54] LABS: Glucose Point of Care 119 mg/dl (65-105)
--- NOTE | 2024-02-10 08:56 | WPDANESEPPF ---
Anes - Initial Pre Proc Eval Procedure: Operation Date: 02/10/24 10:00 Proposed Procedures p Colonoscopy - Cristhian Dubon MD Date/Time: 02/10/24 08:56 Surgeon: Cristhian Dubon MD Pre Op Diagnosis: Polyp of colon Patient Data Age: 63 Gender: M Height: 1.68 m Weight: 158 kg Last Vital Signs Temp 36.4 C 02/10/24 08:46 Pulse 67 02/10/24 08:46 Resp 18 02/10/24 08:46 BP 131/71 02/10/24 08:46 Pulse Ox 98 02/10/24 08:46 O2 Del Method Room Air 02/10/24 08:46 Allergies Allergy/AdvReac Type Severity Reaction Status Date / Time No Known Allergies Allergy Verified 02/10/24 08:45 Home Medications Medication Instructions Recorded Confirmed Type aspirin 81 mg tablet,delayed 81 mg PO DAILY 06/24/19 02/10/24 History release cinnamon bark 500 mg capsule 500 mg PO DAILY 07/12/19 02/10/24 History (Cinnamon) terbinafine HCl 250 mg tablet 250 mg PO DAILY 01/20/23 02/10/24 History lancets #100 ea 07/22/23 02/10/24 Rx losartan 25 mg tablet See Rx Instructions .Route 11/17/23 02/10/24 Rx .COMPLEX #90 tabs atorvastatin 20 mg tablet See Rx Instructions .Route 12/15/23 02/10/24 Rx .COMPLEX #90 tabs gabapentin 300 mg capsule 300 mg PO TID #90 caps 12/15/23 02/10/24 Rx blood sugar diagnostic (Contour #200 ea 12/18/23 02/10/24 Rx Next Test Strips) hydrochlorothiazide 25 mg tablet See Rx Instructions .Route 01/07/24 02/10/24 Rx .COMPLEX #90 tabs blood-glucose meter (Contour Next #1 ea 01/13/24 02/10/24 Rx One Meter) levocetirizine 5 mg tablet (Xyzal) 5 mg PO DAILY 01/20/24 02/10/24 History semaglutide 2 mg/dose (8 mg/3 mL) 2 mg (0.75 mL) subcut WEEKLY #9 mL 01/27/24 02/10/24 Rx subcutaneous pen injector (Ozempic) meloxicam 15 mg tablet 15 mg PO DAILY #30 tabs 02/03/24 02/10/24 Rx Laboratory Tests 02/10/24 08:52 POC Capillary Glucose 119 H mg/dl (65-105) Patient hx anesthesia problems: none Family hx anesthesia problems: other (mother combative) Results Review: All pre-operative results and documents have been reviewed as part of the pre-operative evaluation. [facility] Past Medical History Medical History Basal cell carcinoma (BCC) of lower lip Cervicalgia Eczema Essential (primary) hypertension Former smoker Goiter Long-term insulin use Metabolic syndrome Metabolic syndrome Morbid obesity Obstructive sleep apnea (adult) (pediatric) Pure hypercholesterolemia Shoulder pain, left Thyroid nodule Type 2 diabetes mellitus with diabetic neuropathy, unspecified Viral gastroenteritis Surgical History Surgical History [place] teeth extracted Family History Family History Sibling Family history of kidney disease Family history of diabetes mellitus in first degree relative Family history of coronary artery disease Diabetes mellitus Mother Family history of Alzheimer's disease Family history of malignant melanoma Diabetes mellitus, Onset Age: 84 Family history of cardiovascular disease, Onset Age: 84 Family history of dementia, Onset Age: 84 Father Family history of malignant melanoma Family history of lung cancer, Onset Age: 65 Other Depression Family history of chronic obstructive pulmonary disease Family history of congestive heart failure Family history of malignant neoplasm Family history of obesity Hypertension Social History Social History Smoking packs per day: 2.5 Smoking cigarettes per day: 50.0 Years smoked: 27 Smoking pack-years: 67.50 Smoking status: Former smoker Tobacco type: cigarettes Second hand tobacco smoke exposure: Yes Smoking end date: 07/07/06 Alcohol intake: former Alcohol use details: quit 2006 [place]
[2024-02-10] MEDS: LACTATED RINGERS 1,000 ML 150 ML IV CONT (08:59)
--- NOTE | 2024-02-10 09:22 | PM.HPGS ---
History of Present Illness History of Present Illness Consent: Risks, benefits, and alternatives have been discussed and questions answered. Patient agrees to proceed with procedure. Chief complaint: Polyp of colon Narrative: Demond Aparicio is a 63 year old male with colon polyp Review of Systems Review of Systems: All systems reviewed & are unremarkable except as noted in HPI and below PMFSH Past Medical History Medical History Basal cell carcinoma (BCC) of lower lip Cervicalgia Eczema Essential (primary) hypertension Former smoker Goiter Long-term insulin use Metabolic syndrome Metabolic syndrome Morbid obesity Obstructive sleep apnea (adult) (pediatric) Pure hypercholesterolemia Shoulder pain, left Thyroid nodule Type 2 diabetes mellitus with diabetic neuropathy, unspecified Viral gastroenteritis Surgical History Surgical History [place] teeth extracted Family History Family History Sibling Family history of kidney disease Family history of diabetes mellitus in first degree relative Family history of coronary artery disease Diabetes mellitus Mother Family history of Alzheimer's disease Family history of malignant melanoma Diabetes mellitus, Onset Age: 84 Family history of cardiovascular disease, Onset Age: 84 Family history of dementia, Onset Age: 84 Father Family history of malignant melanoma Family history of lung cancer, Onset Age: 65 Other Depression Family history of chronic obstructive pulmonary disease Family history of congestive heart failure Family history of malignant neoplasm Family history of obesity Hypertension Social History Social History Smoking packs per day: 2.5 Smoking cigarettes per day: 50.0 Years smoked: 27 Smoking pack-years: 67.50 Smoking status: Former smoker Tobacco type: cigarettes Second hand tobacco smoke exposure: Yes Smoking end date: 07/07/06 Alcohol intake: former Alcohol use details: quit 2006 Substance use: never Substance use type: does not use Do You Feel Safe in your Home?: Yes Lack of Transportation: No Lack of Food: Never True Current Housing: I Have Housing Concerned About Future Housing: No Difficulty Paying Gas/Electric Bills: No Difficulty Paying for Meds: No Currently Unemployed: No Education: High School Diploma/GED Difficulty w/ Childcare or Family Care: No Living arrangements: with family Occupation/Education: occupation 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 Spiritual care concerns: No Meds Home Medications and Allergies Home Medications Medication Instructions Recorded Confirmed Type aspirin 81 mg tablet,delayed 81 mg PO DAILY 06/24/19 02/10/24 History release cinnamon bark 500 mg capsule 500 mg PO DAILY 07/12/19 02/10/24 History (Cinnamon) terbinafine HCl 250 mg tablet 250 mg PO DAILY 01/20/23 02/10/24 History lancets #100 ea 07/22/23 02/10/24 Rx losartan 25 mg tablet See Rx Instructions .Route 11/17/23 02/10/24 Rx .COMPLEX #90 tabs atorvastatin 20 mg tablet See Rx Instructions .Route 12/15/23 02/10/24 Rx .COMPLEX #90 tabs gabapentin 300 mg capsule 300 mg PO TID #90 caps 12/15/23 02/10/24 Rx blood sugar diagnostic (Contour #200 ea 12/18/23 02/10/24 Rx Next Test Strips) hydrochlorothiazide 25 mg tablet See Rx Instructions .Route 01/07/24 02/10/24 Rx .COMPLEX #90 tabs blood-glucose meter (Contour Next #1 ea 01/13/24 02/10/24 Rx One Meter) levocetirizine 5 mg tablet (Xyzal) 5 mg PO DAILY 01/20/24 02/10/24 History semaglutide 2 mg/dose (8 mg/3 mL) 2 mg (0.75 mL) subcut WEEKLY #9 mL 01/27/24 02/10/24 Rx subcutaneous pen injector (Ozempic) meloxicam 15 mg tab
[2024-02-10 09:44] VITALS: BP 113/59; PULSE 65; RESP 23; O2SAT 96
[2024-02-10 09:54] VITALS: BP 112/77; PULSE 67; RESP 16; O2SAT 95
[2024-02-10 10:04] VITALS: BP 136/82; PULSE 70; RESP 17; O2SAT 96
== END 2024-02-10 10:08 | disposition home or self-care (01) ==
PROVIDERS: PCP Nurse Practitioner Family; Referring Provider Family Medicine; Visit Provider Internal Medicine Gastroenterology
PROC: 0DJD8ZZ Inspection of Lower Intestinal Tract, Via Natural or Artificial Opening Endoscopic (ICD-10-PCS; CPT 45378; principal; 2024-02-10 10:00)
DX: Z12.11 Encounter for screening for malignant neoplasm of colon (principal); D12.3 Benign neoplasm of transverse colon; D12.4 Benign neoplasm of descending colon; I10 Essential (primary) hypertension; E78.00 Pure hypercholesterolemia, unspecified; E11.40 Type 2 diabetes mellitus with diabetic neuropathy, unspecified; G47.33 Obstructive sleep apnea (adult) (pediatric); Z87.891 Personal history of nicotine dependence; Z79.82 Long term (current) use of aspirin; Z79.85 Long-term (current) use of injectable non-insulin antidiabetic drugs; E66.01 Morbid (severe) obesity due to excess calories; Z68.43 Body mass index [BMI] 50.0-59.9, adult
CPT/HCPCS: 45385; 82948; 88305; J2704; J7120

== ENCOUNTER 2024-07-30 09:57 | Emergency (ER) | payer OTHER, SELFPAY ==
--- NOTE | 2024-07-30 10:08 | ED.URI ---
HPI - URI/Sore Throat General Chief Complaint: Upper Respiratory Infection Stated Complaint: Sore Throat/Ear Problem Time Seen by Provider: 07/30/24 10:08 Source: patient, RN notes reviewed and old records reviewed Mode of arrival: ambulatory Limitations: no limitations History of Present Illness HPI Narrative: 63year old male presents to express care with complaints of illness since Friday which includes fevers, cough which is productive of greenish phlegm, sinus drainage, ears itching and sore, some sore throat, with eyes watery. Patient reports that he has been taking Xyzal, Emerg C, and some vitamin C tablets for his symptoms. 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 Patient reports that he had a prescription for Augmentin in June but he didn't take it for sinusitis because he got better. MD elicited complaint: fever, cough, sore throat and other (ear pain) Pertinent past history: pneumonia and other (sinus problems, CHF) Onset (ago): day(s) (2) Consistency: constant Severity: moderate Description of mucous: green Able to tolerate fluids by mouth: Yes Treatments prior to arrival: other (Xyzal, Emerg C and vitamin C) Related Data Home Medications ?Medication ?Instructions ?Recorded ?Confirmed ?Last Taken ?Type aspirin 81 mg tablet,delayed 81 mg PO DAILY 06/24/19 06/22/24 Unknown History release cinnamon bark 500 mg capsule 500 mg PO DAILY 07/12/19 06/22/24 Unknown History (Cinnamon) terbinafine HCl 250 mg tablet 250 mg PO DAILY 01/20/23 06/22/24 Unknown History levocetirizine 5 mg tablet (Xyzal) 5 mg PO DAILY 01/20/24 06/22/24 Unknown History Allergies Allergy/AdvReac Type Severity Reaction Status Date / Time No Known Allergies Allergy Verified 07/30/24 10:11 Review of Systems Review of Systems: CONSTITUTIONAL: Reports some malaise, chills, sweats, or fever. EYES: Denies visual changes, redness, or discharge. ENT: Reports rhinorrhea, congestion, sinus pain, bilateral otalgia and mild sore throat. CARDIOVASCULAR: Denies chest pain, palpitations, or edema. RESPIRATORY: Reports productive cough.? Denies dyspnea. GASTROINTESTINAL: Denies abdominal pain, nausea, vomiting, diarrhea SKIN: Denies rash or itching. MUSCULOSKELETAL: Denies myalgia. NEUROLOGIC: Denies headache. All systems reviewed & are unremarkable except as noted in HPI and below PMFSH Past Medical History Medical History (Updated 07/30/24 @ 12:33 by Zonia Barcenas NP) Cervicalgia Shoulder pain, left Metabolic syndrome Thyroid nodule Eczema Viral gastroenteritis Metabolic syndrome Goiter Basal cell carcinoma (BCC) of lower lip Essential (primary) hypertension Former smoker Morbid obesity Obstructive sleep apnea (adult) (pediatric) Pure hypercholesterolemia Type 2 diabetes mellitus with diabetic neuropathy, unspecified Surgical History Surgical History [place] teeth extracted Family History Family History Sibling Family history of kidney disease Family history of diabetes mellitus in first degree relative Family history of coronary artery disease Diabetes mellitus Mother Family history of Alzheimer's disease Family history of malignant melanoma Diabetes mellitus, Onset Age: 84 Family history of cardiovascular disease, Onset Age: 84 Family history of dementia, Onset Age: 84 Father Family history of malignant melanoma Family history of lung cancer, Onset Age: 65 Other Depression Family history of chronic obstructive pulmonary disease Family history of congestive heart failure Family history of malignant neoplasm Family history of obesity Hypertension Social History Social History Smoking packs per day: 2.5 Smoking cigarettes per day: 50.0 Years smoked: 27 Smoking pack-years: 67.50 Smoking status: Former smoker Tobacco type: cigarettes Second hand tobacco smoke exposure: Yes Smoking end date: 07/07/06 Alcohol intake: former Alcohol use details: quit 2006 Substance use: never Substance use type: does not use Do You Feel Safe in your Home?: Yes Lack of Transportation: No Lack of Food: Never True Current Housing: I Have Housing Concerned About Future Housing: No Difficulty Paying Gas/Electric Bills: No Difficulty Paying for Meds: No Currently Unemployed: No Education: High School Diploma/GED Difficulty w/ Childcare or Family Care: No Living arrangements: with family Occupation/Education: occupation 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 There is no relevant family history pertinent to the presenting complaint Exam Narrative: GENERAL: Well-appearing, well-nourished, and in no acute distress. HEAD: Normocephalic EYES: PERRLA, conjunctivae clear ENT: Nares clear, turbinates edematous and erythematous, clear discharge. Mucous membranes moist. Bilateral TM's with some redness with TM's intact no drainage or any tragal tenderness. Oropharynx erythematous without lesions. Tonsils not enlarged and without exudate, no drooling, no hoarseness, no trismus, uvula midline.post nasal drainage noted. NECK: Supple. No lymphadenopathy CHEST: Clear to auscultation, breath sounds equal. No wheezing, rhonchi, rales, or stridor. No respiratory distress, speaks in full sentences.productive cough, SAO2 97% on room air, no tachypnea HEART: Regular rate and rhythm. No murmur heard. SKIN: Warm, dry, no rash. NEURO: Alert and oriented x3. PSYCH: Normal mood and affect Course Course Emergency Course: Patient is aware of diagnosis, understands and agrees to treatment plan.? Anticipatory guidance given.? Patient agrees to follow-up as directed and is aware of reasons to seek care at the emergency department. Portions of this record may have been created with voice recognition software Level of Care: Express Care Visit Vital Signs Vital signs: Vital Signs Temperature 37.6 C H 07/30/24 10:10 Pulse Rate 96 07/30/24 10:10 Respiratory Rate 16 07/30/24 10:10 Blood Pressure 139/78 07/30/24 10:10 Pulse Oximetry 97 07/30/24 10:10 Oxygen Delivery Room Air 07/30/24 10:10 Temperature 37.6 C H 07/30/24 10:10 Pulse Rate 96 07/30/24 10:10 Respiratory Rate 16 07/30/24 10:10 Blood Pressure 139/78 07/30/24 10:10 Pulse Oximetry 97 07/30/24 10:10 Oxygen Delivery Room Air 07/30/24 10:10 Reviewed MDM - URI/Sore Throat MDM Narrative Medical decision making narrative: Differential diagnosis considered: Hawkins virus, strep pharyngitis, allergic rhinitis, upper respiratory tract infection, sinusitis, rhinosinusitis, nasopharyngitis. viral pharyngitis, otitis media, otitis externa, pneumonia, bronchitis, viral cough syndrome, viral syndrome, and influenza.? Exam findings show no acute concerns or changes; patient is non-toxic appearing and is in no distress.? Patient is appropriate for outpatient treatment and follow-up. Differential Diagnosis Differential diagnosis: Likely upper respiratory infection, otitis media, sinusitis, viral infection, influenza and other (COVID) Medical Records Attestation: I reviewed the patient's medical records. Lab Data Attestation: I reviewed the patient's lab results. Lab results narrative: Influenza A negative, Influenza B negative, COVID antigen negative Labs: Lab Results 07/30/24 Range/Units 10:25 POC Influenza A Ag Negative (Negative) POC Influenza B Ag Negative (Negative) POC SARS CoV-2 Ag Negative (Negative) reviewed Critical Care Time Critical Care Time Critical Care Time: No Discharge Plan Discharge Clinical Impression: URI (upper respiratory infection) Qualifiers: URI type: unspecified URI Qualified Code(s): J06.9 - Acute upper respiratory infection, unspecified Otitis media of both ears Qualifiers: Otitis media type: serous Chronicity: acute Recurrence: not specified as recurrent Qualified Code(s): H65.03 - Acute serous otitis media, bilateral Patient Disposition: Home, Self-Care Condition: Stable Instructions: Antibiotic Form, Ear Infection (GEN), Upper Respiratory Infection (ED) Additional Instructions: Increase fluids especially juices and water [id number] cough and cold medicine of your choice for your symptoms Tylenol or Ibuprofen for any fever or pain Continue your nasal spray as ordered Zyrtec, Claritin or Guillermina, or Xyzal daily may include Coricidin nasal decongestant heat to the face 20-30 minutes 4-6 times a day for pain Salt water gargles, throat lozenges or throat sprays as desired Antibiotic as directed--finished the medication If your symptoms persist, change or worsen significantly before you can contact your personal physician then please, without delay, go to the emergency department for further evaluation. Follow-up with PCP in 7-10 days or sooner if needed Follow up with PCP soon in regards to your blood pressure which is elevated above threshold for referral. Blood pressure above 120/80 may indicate pre-hypertension. 139/78 Patient Language: Amharic Prescriptions: New amoxicillin 875 mg tablet 875 mg PO Q12H Qty: 20 0RF Rx Instructions: Take all of prescription No Action terbinafine HCl 250 mg tablet 250 mg PO DAILY fluticasone propionate 50 mcg/actuation spray,suspension 2 spray intranasal DAILY Qty: 16 0RF Rx Instructions: administer into each nostril aspirin 81 mg tablet,delayed release (DR/EC) 81 mg PO DAILY cinnamon bark [Cinnamon] 500 mg capsule 500 mg PO DAILY levocetirizine [Xyzal] 5 mg Tablet 5 mg PO DAILY (DME) lancets Misc See Rx Instructions .ROUTE .MEDSUPPLY Qty: 100 1RF Rx Instructions: As directed to check blood sugars twice daily (DME) blood-glucose meter [Contour Next One Meter] [facility] [place] See Rx Instructions .ROUTE .COMPLEX Qty: 1 0RF Dose Instruction: DIRECTED Rx Instructions: DIRECTED Ozempic 2 mg/dose (8 mg/3 mL) pen injector 2 mg subcut WEEKLY Qty: 9 3RF atorvastatin 20 mg tablet See Rx Instructions .ROUTE .COMPLEX Qty: 90 1RF Dose Instruction: TAKE 1 TABLET DAILY Rx Instructions: TAKE 1 TABLET DAILY (DME) Contour Next Test Strips Strip See Rx Instructions .ROUTE .COMPLEX Qty: 150 2RF Dose Instruction: USE DIRECTED TWICE A DAY Rx Instructions: USE DIRECTED TWICE A DAY gabapentin 300 mg capsule See Rx Instructions .ROUTE .COMPLEX Qty: 270 1RF Dose Instruction: TAKE 1 CAPSULE BY MOUTH THREE TIMES A DAY Rx Instructions: TAKE 1 CAPSULE BY MOUTH THREE TIMES A DAY hydrochlorothiazide 25 mg tablet See Rx Instructions .ROUTE .COMPLEX Qty: 90 0RF Dose Instruction: TAKE 1 TABLET BY MOUTH EVERY DAY Rx Instructions: TAKE 1 TABLET BY MOUTH EVERY DAY losartan 25 mg tablet See Rx Instructions .ROUTE .COMPLEX Qty: 90 2RF Dose Instruction: TAKE 1 TABLET EVERY DAY Rx Instructions: TAKE 1 TABLET EVERY DAY meloxicam 15 mg tablet See Rx Instructions .ROUTE .COMPLEX Qty: 30 1RF Dose Instruction: TAKE 1 TABLET BY MOUTH EVERY DAY Rx Instructions: TAKE 1 TABLET BY MOUTH EVERY DAY Follow-up/Referrals: Luis Mart MD [Primary Care Provider] - Time of Disposition: 10:44 Quality [place] Coma Scale Eyes: Open Verbal: Oriented and Alert Motor: Follows Commands Torri Coma Total Score: 15
[2024-07-30 10:10] VITALS: BP 139/78; PULSE 96; RESP 16; TEMP 37.6; O2SAT 97
[2024-07-30 10:28] LABS: EDCOVIDSCREEN Negative (Negative); EDINFLUASCREEN Negative (Negative); EDINFLUBSCREEN Negative (Negative)
== END 2024-07-30 10:52 | disposition home or self-care (01) ==
PROVIDERS: Emergency Provider Registered Nurse; PCP Family Medicine
DX: J06.9 Acute upper respiratory infection, unspecified (principal); H65.03 Acute serous otitis media, bilateral; Z79.82 Long term (current) use of aspirin; I10 Essential (primary) hypertension; G47.33 Obstructive sleep apnea (adult) (pediatric); E78.00 Pure hypercholesterolemia, unspecified; E11.40 Type 2 diabetes mellitus with diabetic neuropathy, unspecified; Z87.891 Personal history of nicotine dependence; E66.01 Morbid (severe) obesity due to excess calories; Z68.43 Body mass index [BMI] 50.0-59.9, adult; Z20.822 Contact with and (suspected) exposure to COVID-19
CPT/HCPCS: 87426; 87804; 99213; G0463

== ENCOUNTER 2024-08-17 10:48 | Emergency (ER) | payer OTHER, SELFPAY ==
[2024-08-17 10:52] VITALS: BP 103/77; PULSE 80; RESP 16; TEMP 36.3; O2SAT 97
--- NOTE | 2024-08-17 11:11 | ED_ITS ---
HPI - URI/Sore Throat General Chief Complaint: Upper Respiratory Infection Stated Complaint: Congestion/Ear Problem/Cough Time Seen by Provider: 08/17/24 11:24 Source: patient and RN notes reviewed Mode of arrival: ambulatory Limitations: no limitations History of Present Illness HPI Narrative: 63-year-old male presents with concern for sinus drainage, fever, cough, stuffy nose, itchy ears, itchy eyes that started last night. Reports he was seen about 2 weeks ago and was given amoxicillin, he took 4 days of the amoxicillin and stop taking it because he felt better. Reports he has felt better for a week and these new symptoms started last night. He took Flonase and a dose of the amoxicillin this morning. MD elicited complaint: nasal congestion Related Data Home Medications ?Medication ?Instructions ?Recorded ?Confirmed ?Last Taken ?Type aspirin 81 mg tablet,delayed 81 mg PO DAILY 06/24/19 08/17/24 Unknown History release cinnamon bark 500 mg capsule 500 mg PO DAILY 07/12/19 08/17/24 Unknown History (Cinnamon) terbinafine HCl 250 mg tablet 250 mg PO DAILY 01/20/23 08/17/24 Unknown History levocetirizine 5 mg tablet (Xyzal) 5 mg PO DAILY 01/20/24 08/17/24 Unknown History pain in 08/17/24 Unknown History Allergies Allergy/AdvReac Type Severity Reaction Status Date / Time No Known Allergies Allergy Verified 08/17/24 10:52 Review of Systems Review of Systems: CONSTITUTIONAL: Reports malaise, fever. EYES: Denies visual changes, redness, or discharge. ENT: Reports rhinorrhea, congestion, itchy ears. Denies sinus pain, otalgia and sore throat. CARDIOVASCULAR: Denies chest pain, palpitations, or edema. RESPIRATORY: Reports cough. Denies dyspnea. GASTROINTESTINAL: Denies abdominal pain, nausea, vomiting, diarrhea SKIN: Denies rash or itching. MUSCULOSKELETAL: Reports myalgia. NEUROLOGIC: Reports headache. All systems reviewed & are unremarkable except as noted in HPI and below PMFSH Past Medical History Medical History (Updated 08/17/24 @ 11:32 by Zoey Douglas NP) Cervicalgia Shoulder pain, left Metabolic syndrome Thyroid nodule Eczema Viral gastroenteritis Metabolic syndrome Goiter Basal cell carcinoma (BCC) of lower lip Essential (primary) hypertension Former smoker Morbid obesity Obstructive sleep apnea (adult) (pediatric) Pure hypercholesterolemia Type 2 diabetes mellitus with diabetic neuropathy, unspecified Surgical History Surgical History [place] teeth extracted Family History Family History Sibling Family history of kidney disease Family history of diabetes mellitus in first degree relative Family history of coronary artery disease Diabetes mellitus Mother Family history of Alzheimer's disease Family history of malignant melanoma Diabetes mellitus, Onset Age: 84 Family history of cardiovascular disease, Onset Age: 84 Family history of dementia, Onset Age: 84 Father Family history of malignant melanoma Family history of lung cancer, Onset Age: 65 Other Depression Family history of chronic obstructive pulmonary disease Family history of congestive heart failure Family history of malignant neoplasm Family history of obesity Hypertension Social History Social History Smoking packs per day: 2.5 Smoking cigarettes per day: 50.0 Years smoked: 27 Smoking pack-years: 67.50 Smoking status: Former smoker Tobacco type: cigarettes Second hand tobacco smoke exposure: Yes Smoking end date: 07/07/06 Alcohol intake: former Alcohol use details: quit 2006 Substance use: never Substance use type: does not use Do You Feel Safe in your Home?: Yes Lack of Transportation: No Lack of Food: Never True Current Housing: I Have Housing Concerned About Future Housing: No Difficulty Paying Gas/Electric Bills: No Difficulty Paying for Meds: No Currently Unemployed: No Education: High School Diploma/GED Difficulty w/ Childcare or Family Care: No Living arrangements: with family Occupation/Education: occupation 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 There is no relevant family history pertinent to the presenting complaint Exam Narrative: GENERAL: Well-appearing, well-nourished, and in no acute distress. HEAD: Normocephalic EYES: PERRLA, conjunctivae clear ENT: Nares clear. Mucous membranes moist. TM pearly nelson with dull light reflex bilaterally; no tragal tenderness. Oropharynx not erythematous without lesions. Tonsils not enlarged and without exudate, no drooling, no hoarseness, no trismus, uvula midline. NECK: Supple. No lymphadenopathy CHEST: Clear to auscultation, breath sounds equal. No wheezing, rhonchi, rales, or stridor. No respiratory distress, speaks in full sentences. HEART: Regular rate and rhythm. No murmur heard. SKIN: Warm, dry, no rash. NEURO: Alert and oriented x3. PSYCH: Normal mood and affect Course Course Emergency Course: Patient is aware of diagnosis, understands and agrees to treatment plan. Anticipatory guidance given. Patient agrees to follow-up as directed and is aware of reasons to seek care at the emergency department. Portions of this record may have been created with voice recognition software Level of Care: Express Care Visit Vital Signs Vital signs: Vital Signs Temperature 97.4 F L 08/17/24 10:52 Pulse Rate 80 08/17/24 10:52 Respiratory Rate 16 08/17/24 10:52 Blood Pressure 103/77 08/17/24 10:52 Pulse Oximetry 97 08/17/24 10:52 Oxygen Delivery Room Air 08/17/24 10:52 Temperature 97.4 F L 08/17/24 10:52 Pulse Rate 80 08/17/24 10:52 Respiratory Rate 16 08/17/24 10:52 Blood Pressure 103/77 08/17/24 10:52 Pulse Oximetry 97 08/17/24 10:52 Oxygen Delivery Room Air 08/17/24 10:52 Reviewed. MDM - URI/Sore Throat MDM Narrative Medical decision making narrative: Differential diagnosis considered: Hawkins virus, strep pharyngitis, allergic rhinitis, upper respiratory tract infection, sinusitis, rhinosinusitis, nasopharyngitis. viral pharyngitis, otitis media, otitis externa, pneumonia, bronchitis, viral cough syndrome, viral syndrome, and influenza. Exam findings show no acute concerns or changes; patient is non-toxic appearing and is in no distress. Patient is appropriate for outpatient treatment and follow-up. Lab Data Attestation: I reviewed the patient's lab results. Critical Care Time Critical Care Time Critical Care Time: No Discharge Plan Discharge Clinical Impression: Upper respiratory infection Patient Disposition: Home, Self-Care Condition: Stable Instructions: Upper Respiratory Infection (ED) Additional Instructions: Viral illness may last between 7-21 days; antibiotics do not cure viral illness and are NOT recommended at this time. Recommend antihistamine such as Benadryl at night time and Zyrtec or Guillermina during the day Also, recommend symptomatic treatment includes: rest, fluids, and increase humidity of the air at home. Recommend Acetaminophen as directed on the bottle to reduce fever, pain, headache. Avoid smoking/second-hand smoke. Please schedule a follow-up visit with your personal physician for further evaluation and treatment within 3-5days. Including recheck and discussion of your blood pressure. If your symptoms persist, change or worsen significantly before you can contact your personal physician then please, without delay, go to the emergency department for further evaluation. Patient Language: Angolan Prescriptions: New cetirizine-pseudoephedrine [Zyrtec-D] 5-120 mg tablet extended release 12 hr 1 tablet PO Q12H PRN (Reason: nasal congestion) Qty: 12 0RF dextromethorphan-guaifenesin [Mucinex DM] 60-1,200 mg tablet extended release 12 hr 1 tablet PO Q12H Qty: 12 0RF No Action pain in terbinafine HCl 250 mg tablet 250 mg PO DAILY aspirin 81 mg tablet,delayed release (DR/EC) 81 mg PO DAILY cinnamon bark [Cinnamon] 500 mg capsule 500 mg PO DAILY levocetirizine [Xyzal] 5 mg Tablet 5 mg PO DAILY (DME) lancets Misc See Rx Instructions .ROUTE .MEDSUPPLY Qty: 100 1RF Rx Instructions: As directed to check blood sugars twice daily (DME) blood-glucose meter [Contour Next One Meter] Misc See Rx Instructions .ROUTE .COMPLEX Qty: 1 0RF Dose Instruction: DIRECTED Rx Instructions: DIRECTED Ozempic 2 mg/dose (8 mg/3 mL) pen injector 2 mg subcut WEEKLY Qty: 9 3RF atorvastatin 20 mg tablet See Rx Instructions .ROUTE .COMPLEX Qty: 90 1RF Dose Instruction: TAKE 1 TABLET DAILY Rx Instructions: TAKE 1 TABLET DAILY gabapentin 300 mg capsule See Rx Instructions .ROUTE .COMPLEX Qty: 270 1RF Dose Instruction: TAKE 1 CAPSULE BY MOUTH THREE TIMES A DAY Rx Instructions: TAKE 1 CAPSULE BY MOUTH THREE TIMES A DAY hydrochlorothiazide 25 mg tablet See Rx Instructions .ROUTE .COMPLEX Qty: 90 0RF Dose Instruction: TAKE 1 TABLET BY MOUTH EVERY DAY Rx Instructions: TAKE 1 TABLET BY MOUTH EVERY DAY losartan 25 mg tablet See Rx Instructions .ROUTE .COMPLEX Qty: 90 2RF Dose Instruction: TAKE 1 TABLET EVERY DAY Rx Instructions: TAKE 1 TABLET EVERY DAY meloxicam 15 mg tablet See Rx Instructions .ROUTE .COMPLEX Qty: 30 1RF Dose Instruction: TAKE 1 TABLET BY MOUTH EVERY DAY Rx Instructions: TAKE 1 TABLET BY MOUTH EVERY DAY fluticasone propionate 50 mcg/actuation spray,suspension See Rx Instructions .ROUTE .COMPLEX Qty: 16 0RF Dose Instruction: 2 SPRAY INTRANASALLY DAILY ADMINISTER INTO EACH NOSTRIL Rx Instructions: 2 SPRAY INTRANASALLY DAILY ADMINISTER INTO EACH NOSTRIL (DME) Contour Next Test Strips Strip See Rx Instructions .ROUTE .COMPLEX Qty: 300 2RF Dose Instruction: USE DIRECTED TWICE A DAY Rx Instructions: USE DIRECTED four times A DAY Follow-up/Referrals: Luis Mart MD [Primary Care Provider] - Time of Disposition: 11:34
--- OUTSIDE RECORDS SUMMARY | 2024-08-17 12:04 | XMS_ITS | Clinical Summary ---
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
--- OUTSIDE RECORDS SUMMARY | 2024-08-17 12:04 | XMS_ITS | Clinical Summary ---
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 Gender Identity Not on file Sexual Orientation Not on file Plan of Treatment Health Maintenance Due Date Last Done Comments Colorectal Cancer Screening Colonoscopy (10 Years) 1961 Annual Physical 1964 Hepatitis C 09/13/1979 DTaP, Tdap and Td Vaccines ( 1 - Tdap) 1980 Zoster Vaccines (1 of 2) 09/13/2011 COVID-19 Vaccine (2023-2 5 season) 2024 Influenza Adult (#1) 2024 RSV Immunization or 60+ Years (1 - 1-dose 75+ series) 2036 Meningococcal B Vaccine Aged Out No l onger eligible based on patient's age to complete this topic Meningococcal Vaccine Aged Out No jamal kaushik eligible based on patient's age to complete this topic Pneumococcal Vaccine: Pediat rics (0 to 5 Years) and At-Risk Patients (6 to 64 Years) Aged Out No longer eligible b ased on patient's age to complete this topic RSV Immunizations Under 20 Months Aged Out No longer eligible based on patient's age to complete this topic Insurance [employer] Care Teams Urologist Relationship Specialty Start Date End Date Rasta Baldwin DO [address] [place] [id number] PCP - General INTERNAL MEDICINE 08/24/19
--- OUTSIDE RECORDS SUMMARY | 2024-08-17 12:04 | XMS_ITS | Continuity of Care Document ---
Author Organization [facility] Address [address] [facility] [place] [address] Phone Care Team Providers Care Hand Candy Molder Name Role Phone Alessandro Salomon MD Unavailable Unavailable Allergies, Adverse Reactions, Alerts Substance Reaction Status Criticality No Known Drug Allergies Active No I nformation Medications Medication Instructions Dosage Effective Dates (start - stop) Status Comments Naprosyn 500 mg Tab Take 1 tablet by twice daily with food. - Active Procedures Procedure Date Office/outpatient visit,est, mod 2010 Supplemental Report Office/outpatient visit,est, mod 2010 Supplemental Report Office/outpatient visit,est, mod 2010 Drain/inject major jointor bursa 2010 Depo Medrol Methylprednisolone 40 MG inj Supplemental Report MRI upr extr joint, w/o contrast 2010 Office consultation, moderate-high X-ray exam of shoulder, complete 2010 X-ray exam of elbow, complete 1 Advance Directives Directive Yes / No Effective Date File Name No Information Encounters Encounter Description Practice Location Reason(s) For Visit Diagnoses Date Provider Providers Copied on Encounter Office/outpat ient visit,est, mod [facility] [address] [place], [place] [address], [id number], [place] tel:[phone] [facility] SHOULDER REGION DIS NEC 1 Umm Francois. [address] [facility], [address], [place], [place], [address] , [place]. tel:[phone] Referring Provider: Alessandro Matamoros, [address] [facility] [address], [place], [address] . tel:[phone] Office/outpat ient visit,[facility], [address], [place], [place], [id number], [place] tel:[phone] [facility] ROTATOR CUFF SYND NOS Jan-0 1 Umm Francois. [address] [facility], [address], [place], [place], [address] , [place]. tel:[phone] Referring Provider: Alessandro Matamoros, [address] [place] [address] [address], [place], [address] . tel:[phone] Office/outpat ient visit,[facility], [facility], [address] [place] [address] 100, [place], [place], [id number], [place] tel:[phone] [facility] JOINT PAIN-SHLDERRO TATOR CUFF SYND NOS Caleb-2 1 Umm Francois. [address] [facility], [address], [place], [place], [address] , [place]. tel:[phone] Referring Provider: Alessandro Matamoros, [facility] [facility] [address], [place], [address] . tel:[phone] [facility], [address] [place] [address] 100, [place], [place], [address], [place] tel:[phone] [facility] ROTATOR CUFF SYND NOSROTATOR CUFF DIS NECLOC PRIM OSTEOART-SHLD ER 1 [facility]. [address] [place] [address], [address], [place], [place], [address] , [place]. tel:[phone] Referring Provider: Alessandro Matamoros, [address] [facility] [address], [place], [address] . tel:[phone] Office consultation, [facility], [address] [place], [place] [address]s [address], [place], [place], [address], [place] tel:[phone] [facility] ELBOW ENTHESOPATHY NOSROTATOR CUFF SYND NOSJOINT PAIN-SHLDERJO INT PAIN-UP/ARM 1 Umm Francois. [address] [facility], [address], [place], [place], [address] , [place]. tel: [phone] Family History Family Member Type Diagnosis Age At Onset No Information Payers Payer name Insurance type Covered constitution party ID Authoriza tion(s) No Information Social History Type Description Quantity Date Captured Comments Sex Male Smoking Status No Information Chief Complaint And Reason For Visit No Information Reason For Referral Reason For Referral No Information History Of Present Illness Encounter Date Complaint History Of Prese nt Illness No Information Functional Status Date Functional Assessmen t No Information Instructions Date Instruction Additional Infor mation No Information Assessments Type Assessment Date No Information Patient Care Teams Name Effective Dates (start - stop) Status Members No Information
--- OUTSIDE RECORDS SUMMARY | 2024-08-17 12:04 | XMS_ITS | Continuity of Care Document ---
Author Organization [facility] Address [address] [facility] [address] [place] [address] Phone Care Team Providers Care Educational Technology Coordinator Name Role Phone Raymond Goncalves MD Unavailable Unavailable Allergies, Adverse Reactions, Alerts Substance Reaction Status Criticality No Known Allergies Active No Inform ation Medications Medication Instructions Dosage Effective Dates (start - stop) Status Comments LISINOPRIL (unknown strength) Not Available - Active aspirin 81 mg tablet,delayed release - Active XYZAL (unknown strength) Not Available - A ctive HYDROCHLOROTHIAZIDE (unknown strength) Not Available - Active GLIMEPIRIDE (unknown strength) Not Available - Active METFORMIN ER GASTRIC (unknown strength) Not Available - Active GABAPENTIN (unknown strength) Not Available - Active TRULICITY (unknown strength) Not Available - Active Procedures Procedure Date OFFICE/OUTPATIENT VISIT EST RADEX VINAY COMPL MINIMUM 2 VIEWS 020 OFFICE CONSULTATION Advance Directives Directive Yes / No Effective Date File Name No Information Encounters Encounter Description Practice Location Reason(s) For Visit Diagnoses Date Provider Providers Copied on Encounter OFFICE/OUTPAT IENT VISIT EST [facility], [address], [address], tel:[phone] [facility] Incomplete tear of right rotator cuffRight shoulder pain, unspecified chronicity 0 Ivanna Andrade. [address] [facility] [address] [place], [address] . tel:[phone] OFFICE CONSULTATION [facility], [address] [facility] [address], [place], [address], tel:[phone] [facility] Right shoulder pain, unspecified chronicityBody mass index (BMI) 50.0-59.9, adultIncomplete tear of right rotator cuff 0 Serg Malloy. [address], [facility], [place], [address] . tel: [phone] Referring Provider: Jenn Luther [facility] [address], [place], [address]. tel:[phone] Family History Family Member Type Diagnosis Age At Onset Father Problem (finding) Cancer, unknown Mother Problem (finding) dementia Payers Payer name Insurance type Covered green party ID Authoriza tion(s) [employer] OT [id number] Social History Type Description Quantity Date Captured Comments Alcohol Use Details Unknown Caffeine Use Details Unknown Tobacco Use Status No Information Smoking Status No Information Sex Male Chief Complaint And Reason For Visit No Information Reason For Referral Reason For Referral No Information Plan Of Treatment Date Type Action Status Referral Ordered: RADEX VINAY COMPL MINIMUM 2 VIEWS RT ordered History Of Present Illness Encounter Date Complaint History Of Prese nt Illness No Information Functional Status Date Functional Assessmen t No Information Instructions Date Instruction Additional Infor mation Call for increase in pain Relate d to Incomplete tear of right rotator cuff Weight monitoring Related to Bod y mass index (BMI) 50.0-59.9, adult Discussed treatment options Rela castillo to Right shoulder pain, unspecified chronicity Call for increase in pain Relate d to Right shoulder pain, unspecified chronicity Assessments Type Assessment Date assessment Incomplete tear of right rotator cuff assessment Right shoulder pain, unspecified chronicity Patient Care Teams Name Effective Dates (start - stop) Status Members No Information
--- OUTSIDE RECORDS SUMMARY | 2024-08-17 12:04 | XMS_ITS | Referral Summary ---
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
--- OUTSIDE RECORDS SUMMARY | 2024-08-17 12:07 | XMS_ITS | Continuity of Care Document ---
Author Organization [facility] Address [address] [facility] [address] [place] [address] Phone Care Team Providers Care Seam Steamer Name Role Phone Raymond Goncalves MD Unavailable [...] OFFICE/OUTPAT IENT VISIT EST [facility], [address], [address], tel:[phone] [facility] Incomplete tear of right rotator cuffRight shoulder pain, unspecified chronicity 0 Ivanna Andrade. [address] [facility] [address] [place], [place], [address] . tel:[phone] OFFICE CONSULTATION [facility], [address] [facility] [address], [place], [address], tel:[phone] [facility] Right shoulder pain, unspecified chronicityBody mass index (BMI) 50.0-59.9, adultIncomplete tear of right rotator cuff 0 Serg Malloy. [address], [facility], [place], [address] . tel: [phone] Referring Provider: Jenn Luther [facility] [address], [place], [address]. tel:[phone] Family History Family Member Type Diagnosis Age At Onset Father Problem (finding) Cancer, unknown Mother Problem (finding) dementia Payers Payer name Insurance type Covered alliance party ID Authoriza tion(s) [employer] [id number] Social History Type Description Quantity Date Captured [...]
--- OUTSIDE RECORDS SUMMARY | 2024-08-17 12:07 | XMS_ITS | Continuity of Care Document ---
Author Organization [facility] Address [address] [facility] [address] [place] [address] Phone Care Team Providers Care Flavoring Oil Filterer Name Role Phone Alessandro Salomon MD Unavailable [...] on Encounter Office/outpat ient visit,est, mod [facility], [address] [place], [place] [address], [id number], [place] tel:[phone] [facility] SHOULDER REGION DIS NEC 1 Umm Francois. [address] [facility], [address], [place], [place], [address] , [place]. tel:[phone] Referring Provider: Alessandro Matamoros, [address] [facility] [address], [place], [address] . tel:[phone] Office/outpat ient visit,[facility], [address], [place], [place], [address], [place] tel:[phone] [facility] ROTATOR CUFF SYND NOS Jan-0 1 Umm Francois. [address] [facility], [address], [place], [place], [address] , [place]. tel:[phone] Referring Provider: Alessandro Matamoros, [address] [place] [address] [address], [place], [address] . tel:[phone] Office/outpat ient visit,[facility], [address] [place] [address] 100, [place], [place], [address], [place] tel:[phone] [facility] JOINT PAIN-SHLDERRO TATOR CUFF SYND NOS Caleb-2 1 Umm Francois. [address] [facility], [address], [place], [place], [address] , [place]. tel:[phone] Referring Provider: Alessandro Matamoros, [facility] [facility] [address], [place], [address] . tel:[phone] [facility], [address] [place] [address] 100, [place], [place], [address], [place] tel:[phone] [facility] ROTATOR CUFF SYND NOSROTATOR CUFF DIS NECLOC PRIM OSTEOART-SHLD ER 1 [facility]. [address] [place] [address], [address], [place], [place], [address] , [place]. tel:[phone] Referring Provider: Alessandro Matamoros, [address] [facility] [address], [place], [address] . tel:[phone] [facility], [address] [place] [address], [place], [place], [address], [place] tel:[phone] [facility] ELBOW ENTHESOPATHY NOSROTATOR CUFF SYND NOSJOINT PAIN-SHLDERJO INT PAIN-UP/ARM 1 Umm Francois. [address] [facility], [address], [place], [place], [address] , [place]. tel: [phone] Family History Family Member Type Diagnosis Age At Onset No Information Payers Payer name Insurance type Covered republican ID Authoriza tion(s) No Information Social History [...]
== END 2024-08-17 11:35 | disposition home or self-care (01) ==
PROVIDERS: Emergency Provider Nurse Practitioner; PCP Family Medicine
DX: J06.9 Acute upper respiratory infection, unspecified (principal); I10 Essential (primary) hypertension; E11.42 Type 2 diabetes mellitus with diabetic polyneuropathy; Z79.85 Long-term (current) use of injectable non-insulin antidiabetic drugs; E78.00 Pure hypercholesterolemia, unspecified; E66.01 Morbid (severe) obesity due to excess calories; Z68.43 Body mass index [BMI] 50.0-59.9, adult; E04.9 Nontoxic goiter, unspecified; E88.810 Metabolic syndrome; Z85.828 Personal history of other malignant neoplasm of skin; Z79.82 Long term (current) use of aspirin; Z87.891 Personal history of nicotine dependence
CPT/HCPCS: 99213; G0463

== ENCOUNTER 2024-12-25 08:34 | Outpatient (CLI) | payer OTHER, SELFPAY ==
--- NOTE | ~2024-12-25 | XR_ITS ---
Left Knee Technique: AP, lateral, and sunrise views were obtained. Clinical History: Pain Findings: No fracture or dislocation is seen. There is medial compartment narrowing, with moderate tr icompartmental osteophyte formation.. Soft tissues are unremarkable. No joint effusion is seen. Impression: Moderate tricompartmental osteoarthritis. Reviewed, dictated and finalized at location . Impression: Moderate tricompartmental osteoarthritis.
--- NOTE | ~2024-12-25 | XR_ITS ---
Right Knee Technique: AP, lateral, and sunrise views were obtained. Clinical History: Pain Findings: No fracture or dislocation is seen. There is medial compartment narrowing. There is moderat e tricompartmental osteophyte formation. Soft tissues are unremarkable. No joint effusion is seen. Impression: Moderate tricompartmental osteoarthritis. Reviewed, dictated and finalized at location . Impression: Moderate tricompartmental osteoarthritis.
[2024-12-25 09:17] LABS: Hematocrit 44.1 % (42.0-52.0); Mean Corpuscular Hemoglobin 31.6 pg (26-34); Mean Platelet Volume 10.1 fl (7.4-10.4); Platelet Count Result 185 k/mm3 (150-375); Red Blood Count 4.74 M/mm3 (4.6-6.20); Red Cell Distribution Width 14.6 % (11.5-14.5); White Blood Count 6.4 K/mm3 (4.5-10.0)
[2024-12-25 09:45] LABS: Alanine Aminotransferase 32 U/L (6-50); Alkaline Phosphatase 83 U/L (38-126); Anion Gap 9 mmol/L (4-12); Aspartate Amino Transferase 29 U/L (17-59); Bilirubin,Total 0.6 mg/dL (0.2-1.3); Blood Urea Nitrogen 28 mg/dL (9-20); Calcium 8.9 mg/dL (8.4-10.2); Carbon Dioxide 25 mmol/L (22-30); Chloride 106 mmol/L (98-107); Cholesterol 153 mg/dL (0-200); Estimated Glomerular Filt Rate > 60; Glucose 130 mg/dL (65-110); HDL Direct 37 mg/dL; Potassium 3.6 mmol/L (3.4-5.0); Sodium 140 mmol/L (137-145); Total Protein 6.7 g/dL (6.3-8.2); Triglycerides 81 mg/dL (<150)
[2024-12-25 09:56] LABS: LDL Cholesterol Direct 95 mg/dL
[2024-12-25 10:15] LABS: Prostate Specific Antigen 0.4 ng/mL (< OR = 4.0)
[2024-12-25 11:35] LABS: Creatinine Urine 157.8 mg/dL
[2024-12-25 11:39] LABS: MALB Creatinine Ratio 7.9 mg/g (0-30); Microalbumin Urine Random 12.5 mg/L (0-16.7)
== END 2024-12-25 08:35 | disposition home or self-care (01) ==
PROVIDERS: Internal Medicine Endocrinology, Diabetes & Metabolism; PCP Family Medicine; Visit Provider Nurse Practitioner Family
DX: M17.0 Bilateral primary osteoarthritis of knee (principal); E78.5 Hyperlipidemia, unspecified; Z12.5 Encounter for screening for malignant neoplasm of prostate; I10 Essential (primary) hypertension; Z00.00 Encounter for general adult medical examination without abnormal findings; E66.01 Morbid (severe) obesity due to excess calories; G47.33 Obstructive sleep apnea (adult) (pediatric); E04.1 Nontoxic single thyroid nodule; E11.42 Type 2 diabetes mellitus with diabetic polyneuropathy; M47.22 Other spondylosis with radiculopathy, cervical region; B35.1 Tinea unguium; N52.9 Male erectile dysfunction, unspecified; J32.9 Chronic sinusitis, unspecified
CPT/HCPCS: 36415; 73564; 80053; 80061; 82043; 84153; 84439; 84443; 85027; G0103